=== PATIENT | female | born 1965 | race Hispanic/Latino ===

== ENCOUNTER 2018-05-28 17:26 | Observation (INO) | payer OTHER ==
--- OUTSIDE RECORDS SUMMARY | 2018-05-28 17:28 | XMS REPORT ---
:1965 [facility] Address [address] [place] [address] [address]. [address] [place] [address] Care Team Providers Name Role Phone Unavailable Unavailable Unavailable Problems This patient has no known problems. Allergies, Adverse Reactions, Alerts This patient has no known allergies or adverse reactions. Medications This patient has no known medications.
[2018-05-28 17:58] LABS: Absolute Lymphocytes (CBC) 3.2 K/uL (0.7-4.9); Absolute Monocytes 0.7 K/uL (0.1-1.3); Absolute Neutrophil 4.5 K/uL (1.8-8.0); Basophils % 0.7 % (0-1.3); Eosinophils % 2.6 % (0-4.4); Hematocrit 36.4 % (36.0-45.0); Lymphocytes % 37.2 % (15.3-44.8); MPV 9.9 fL (7.6-11.3); Monocytes % 7.6 % (3.3-12.3); RBC Red Blood Cell Count 3.83 M/uL (3.86-4.86)
[2018-05-28 18:01] LABS: Protime INR 0.99
[2018-05-28 18:18] LABS: ALT/SGPT 32 U/L (12-78); AST/SGOT 19 U/L (15-37); Alkaline Phosphatase 88 U/L (45-117); BUN Blood Urea Nitrogen 15 mg/dL (7-18); Bicarbonate 26 mmol/L (21-32); Bilirubin Direct < 0.1 mg/dL (0-0.2); Bilirubin Total 0.3 mg/dL (0.2-1.0); Glucose Level 101 mg/dL (74-106); Magnesium 2.3 mg/dL (1.8-2.4); NT PRO-BNP 15 pg/mL (<125); Potassium 3.7 mmol/L (3.5-5.1); Protein, Total 8.1 g/dL (6.4-8.2); Sodium Level 139 mmol/L (136-145); Troponin (Emerg Dept Use Only) < 0.02 ng/mL (0.0-0.045)
--- NOTE | 2018-05-28 18:47 | ER ---
Nurse's Notes [facility] Name: Gayla Zapata Age: 53 yrs Sex: Female : 1965 Arrival Date: 05/28/2018 Time: 17:33 Bed 2 Private MD: Diagnosis: Chest pain, unspecified;Hypertension Emergency Presentation: 05/28 17:22 Presenting complaint: EMS states: chest pain, dizziness, headache, tingling bilateral sv hands started today. BP on left arm 220/140, on right arm 220/100, 20G R AC, ASA 324 mg PO, Nitro x2 SL, Zofran 4 mg IVP, pt's CP subsided after last Nitro was given. Transition of care: patient was not received from another setting of care. Onset of symptoms was May 28, 2018. Risk Assessment: Do you want to hurt yourself or someone else? Patient reports no desire to harm self or others. Initial Sepsis Screen: Does the patient meet any 2 criteria? No. Patient's initial sepsis screen is negative. Does the patient have a suspected source of infection? No. Patient's initial sepsis screen is negative. Care prior to arrival: Medication(s) given: ASA, 81 mg, x 4, Nitroglycerin, 0.4 mg SL x 2, zofran 4 mg, IV initiated. 20 GA, in the right antecubital area. 17:22 Acuity: ADELAIDA 2 sv 17:22 Method Of Arrival: EMS: [facility] sv 17:25 Note Pt reports that when she has her chest pain it is midsternal chest pain and feels sv like a heaviness sitting on her chest that is intermittent. Pt reports a hx of HTN and stopped taking her Coreg in 2015 but was being monitored by her PCP. Pt reports that her had at that time and they thought her BP was high d/t emotional stress. Triage Assessment: 17:25 General: Appears in no apparent distress. comfortable, well developed, Behavior is sv calm, cooperative, appropriate for age. Pain: Denies pain. Neuro: Level of Consciousness is awake, alert, obeys commands, Oriented to person, place, time, situation, Moves all extremities. Full function Speech is normal. Cardiovascular: Patient's skin is warm and dry. Pulses are 3+ in right radial artery and left radial artery Rhythm is sinus rhythm Chest pain is denied. Respiratory: Airway is patent Respiratory effort is even, unlabored, Respiratory pattern is regular, symmetrical, Denies shortness of breath. GI: Patient currently denies nausea. Derm: Skin is pink, warm \T\ dry. 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 - Social history:: Smoking status: Patient/guardian denies using tobacco. - Ebola Screening: : No symptoms or risks identified at this time. Screenin:30 Abuse screen: Denies threats or abuse. Denies injuries from another. Nutritional sv screening: No deficits noted. Tuberculosis screening: No symptoms or risk factors identified. Fall Risk None identified. Assessment: 18:15 Reassessment: Patient appears in no apparent distress at this time. No changes from sv previously documented assessment. Patient and/or family updated on plan of care and expected duration. Pain level reassessed. Patient is alert, oriented x 3, equal unlabored respirations, skin warm/dry/pink. 18:31 Reassessment: Dr Fabian at the bedside. sv 19:18 Reassessment: Patient denies pain at this time. General: Appears in no apparent lp1 distress. Neuro: Level of Consciousness is awake, alert, obeys commands, Oriented to person, place, time, situation, Reports dizziness. Cardiovascular: Patient's skin is warm and dry. Respiratory: Respiratory effort is even, unlabored. GI: No signs and/or symptoms were reported involving the gastrointestinal system. : No signs and/or symptoms were reported regarding the genitourinary system. EENT: No signs and/or symptoms were reported regarding the EENT system. Derm: Skin is pink, warm \T\ dry. Musculoskeletal: Circulation, motion, and sensation intact. 20:15 Reassessment: Patient appears in no apparent distress at this time. No changes from lp1 previously documented assessment. Patient and/or family updated on plan of care and expected duration. Pain level reassessed. 20:49 Reassessment: Attempted to call report; nurse will call back. lp1 Vital Signs: 17:30 BP 175 / 97; Pulse 89; Resp 16; Temp 98; Pulse Ox 100% on R/A; Weight 70.31 kg; Height sv 5 ft. 3 in. (160.02 cm); Pain 0/10; 17:45 BP 159 / 80; Pulse 84; Resp 18; Pulse Ox 100% ; sv 18:04 BP 168 / 76; Pulse 83; Resp 16; Pulse Ox 100% on 2 lpm NC; sv 18:15 BP 126 / 65; Pulse 75; Resp 13; Pulse Ox 100% on 2 lpm NC; sv 18:30 BP 116 / 57; Pulse 69; Resp 12; Pulse Ox 99% on 2 lpm NC; sv 19:18 BP 131 / 61; Pulse 77; Resp 14; Temp 99.1(O); Pulse Ox 99% on R/A; Pain 0/10; lp1 20:24 BP 139 / 67; Pulse 82; Resp 18; Pulse Ox 99% on R/A; lp1 21:09 BP 127 / 53; Pulse 66; Resp 18; Pulse Ox 98% on R/A; lp1 17:30 Body Mass Index 27.46 (70.31 kg, 160.02 cm) sv ED Course: 17:22 Initial lab(s) drawn, by me, sent to lab. Maintain EMS IV. Dressing intact. Good blood sv return noted. Site clean \T\ dry. Gauge \T\ site: 20G R AC. 17:25 Oxygen administration via nasal cannula \T\ 2L/min. sv 17:26 EKG done, by ED staff, reviewed by Hiram ELIZALDE. eb 17:30 Arm band placed on Patient placed in an exam room, on a stretcher, on oxygen, on sv art critic, on pulse oximetry. 17:30 Patient has correct armband on for positive identification. Placed in gown. Bed in low sv position. Call light in reach. Adult w/ patient. oven operator automatic on. Pulse ox on. NIBP on. Door closed. Warm blanket given. Head of bed elevated. 17:33 Patient arrived in ED. bd 17:37 Hiram Ford PA is PHCP. jr8 17:37 Neal Mayfield MD is Attending Physician. jr8 17:40 Justina Fernandez, RN is Primary Nurse. sv 17:42 Triage completed. sv 17:46 X-ray completed. Portable x-ray completed in exam room. Patient tolerated procedure sg4 well. 17:48 XRAY Chest (1 view) In Process Unspecified. EDMS 18:20 Assisted to bathroom. ambulated/ wheelchair declined after being offered. eb 18:46 Gregg Fabian DO is Hospitalizing Provider. jr8 19:00 Report given to Felicia RN and Izabela RN. sv 19:20 No provider procedures requiring assistance completed. Patient admitted, IV remains in lp1 place. 19:41 Primary Nurse role handed off by Justina Fernandez RN 20:23 Felicia Thompson, TINA is Primary Nurse. lp1 Administered Medications: 20:24 Not Given (Physician Discretion): Labetalol 10 mg IVP once lp1 Outcome: 18:46 Decision to Hospitalize by Provider. jr8 20:24 Condition: stable lp1 20:24 Instructed on the need for admit. 21:10 Admitted to Tele accompanied by tech, via wheelchair, room 413, with chart, Report lp1 called to TINA Austin 21:15 Patient left the ED. lp1 Signatures: Dispatcher [employer] EDMS Vee Cardoso Stephanie, RN RN Felicia Thompson, TINA RN lp1 Hiram Ford PA PA jr8 Nadege Paz Susana sg4
--- NOTE | 2018-05-28 18:47 | EDPHYS ---
Physician Documentation [facility] Name: Gayla Zapata Age: 53 yrs Sex: Female : 1965 Arrival Date: 05/28/2018 Time: 17:33 Bed 2 Private MD: ED Physician Neal Mayfield HPI: 05/28 18:44 This 53 yrs old Female presents to ER via EMS with complaints of Chest Pain, jr8 Headache, Dizziness. 18:44 Onset: gradually, 2 day(s) ago, and became worse and became persistent. The pain does jr8 not radiate. Associated signs and symptoms: The patient has no apparent associated signs or symptoms. The chest pain is described as a pressure. Duration: The patient or guardian reports a single episode, that is still ongoing. Modifying factors: The symptoms are alleviated by nothing. the symptoms are aggravated by nothing. Severity of pain: At its worst the pain was moderate in the emergency department the pain has improved mildly. The patient has not experienced similar symptoms in the past. The patient has not recently seen a physician. 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 - Social history:: Smoking status: Patient/guardian denies using tobacco. - Ebola Screening: : No symptoms or risks identified at this time. ROS: 18:44 Eyes: Negative for injury, pain, redness, and discharge, ENT: Negative for injury, jr8 pain, and discharge, Neck: Negative for injury, pain, and swelling, Respiratory: Negative for shortness of breath, cough, wheezing, and pleuritic chest pain, Abdomen/GI: Negative for abdominal pain, nausea, vomiting, diarrhea, and constipation, Back: Negative for injury and pain, MS/Extremity: Negative for injury and deformity, Skin: Negative for injury, rash, and discoloration. 18:44 Cardiovascular: Positive for chest pain, Negative for edema, orthopnea, palpitations, paroxysmal nocturnal dyspnea. 18:44 Neuro: Positive for headache. Exam: 18:44 Eyes: Pupils equal round and reactive to light, extra-ocular motions intact. Lids and jr8 lashes normal. Conjunctiva and sclera are non-icteric and not injected. Cornea within normal limits. Periorbital areas with no swelling, redness, or edema. ENT: Nares patent. No nasal discharge, no septal abnormalities noted. Tympanic membranes are normal and external auditory canals are clear. Oropharynx with no redness, swelling, or masses, exudates, or evidence of obstruction, uvula midline. Mucous membranes moist. Neck: Trachea midline, no thyromegaly or masses palpated, and no cervical lymphadenopathy. Supple, full range of motion without nuchal rigidity, or vertebral point tenderness. No Meningismus. Cardiovascular: Regular rate and rhythm with a normal S1 and S2. No gallops, murmurs, or rubs. Normal PMI, no JVD. No pulse deficits. Respiratory: Lungs have equal breath sounds bilaterally, clear to auscultation and percussion. No rales, rhonchi or wheezes noted. No increased work of breathing, no retractions or nasal flaring. Abdomen/GI: Soft, non-tender, with normal bowel sounds. No distension or tympany. No guarding or rebound. No evidence of tenderness throughout. Back: No spinal tenderness. No costovertebral tenderness. Full range of motion. Skin: Warm, dry with normal turgor. Normal color with no rashes, no lesions, and no evidence of cellulitis. MS/ Extremity: Pulses equal, no cyanosis. Neurovascular intact. Full, normal range of motion. Neuro: Awake and alert, GCS 15, oriented to person, place, time, and situation. Cranial nerves II-XII grossly intact. Motor strength 5/5 in all extremities. Sensory grossly intact. Cerebellar exam normal. Normal gait. Vital Signs: 17:30 BP 175 / 97; Pulse 89; Resp 16; Temp 98; Pulse Ox 100% on R/A; Weight 70.31 kg; Height sv 5 ft. 3 in. (160.02 cm); Pain 0/10; 17:45 BP 159 / 80; Pulse 84; Resp 18; Pulse Ox 100% ; sv 18:04 BP 168 / 76; Pulse 83; Resp 16; Pulse Ox 100% on 2 lpm NC; sv 18:15 BP 126 / 65; Pulse 75; Resp 13; Pulse Ox 100% on 2 lpm NC; sv 18:30 BP 116 / 57; Pulse 69; Resp 12; Pulse Ox 99% on 2 lpm NC; sv 19:18 BP 131 / 61; Pulse 77; Resp 14; Temp 99.1(O); Pulse Ox 99% on R/A; Pain 0/10; lp1 20:24 BP 139 / 67; Pulse 82; Resp 18; Pulse Ox 99% on R/A; lp1 21:09 BP 127 / 53; Pulse 66; Resp 18; Pulse Ox 98% on R/A; lp1 17:30 Body Mass Index 27.46 (70.31 kg, 160.02 cm) sv MDM: 17:39 Patient medically screened. jr8 18:44 The patient was not given aspirin in the Emergency Department. Administered by EMS. jr8 Data reviewed: vital signs, nurses notes, lab test result(s), EKG, radiologic studies, plain films. Data interpreted: Pulse oximetry: on room air is 99 %. Interpretation: normal. Counseling: I had a detailed discussion with the patient and/or guardian regarding: the historical points, exam findings, and any diagnostic results supporting the discharge/admit diagnosis, lab results, radiology results, the need for further work-up and treatment in the hospital. Physician consultation: Gregg Fabian DO was called at 18:45, was contacted at 18:45, regarding admission, to the telemetry unit. consult, patient's condition, and will see patient. 05/28 17:37 Order name: Basic Metabolic Panel; Complete Time: 18:23 05/28 17:37 Order name: CBC with Diff; Complete Time: 18:17 05/28 17:37 Order name: LFT's; Complete Time: 18:23 05/28 17:37 Order name: Magnesium; Complete Time: 18:23 05/28 17:37 Order name: NT PRO-BNP; Complete Time: 18:23 05/28 17:37 Order name: PT-INR; Complete Time: 18:17 05/28 17:37 Order name: Troponin (emerg Dept Use Only); Complete Time: 18:23 05/28 17:37 Order name: XRAY Chest (1 view); Complete Time: 19:06 05/28 17:37 Order name: EKG; Complete Time: 17:38 8 05/28 17:37 Order name: Cardiac monitoring; Complete Time: 18:29 8 05/28 17:37 Order name: EKG - Nurse/Tech; Complete Time: 18:29 8 05/28 17:37 Order name: IV Saline Lock; Complete Time: 18:29 8 05/28 18:19 Order name: Urine Dipstick--Ancillary (enter results); Complete Time: 20:36 05/28 17:37 Order name: Labs collected and sent; Complete Time: 18:29 8 05/28 17:37 Order name: O2 Per Protocol; Complete Time: 18:29 [facility] 05/28 17:37 Order name: O2 Sat Monitoring; Complete Time: 18:8 Administered Medications: 20:24 Not Given (Physician Discretion): Labetalol 10 mg IVP once lp1 Disposition: 05/29 09:56 Co-signature as Attending Physician, Neal Mayfield MD. rn Disposition: 05/28/18 18:46 Hospitalization ordered by Gregg Fabian for Observation. Preliminary diagnosis are Chest pain, unspecified, Hypertension Emergency . - Bed requested for Telemetry/MedSurg (observation). - Status is Observation. lp1 - Condition is Stable. - Problem is new. - Symptoms have improved. UTI on Admission? No Signatures: Dispatcher [employer] EDJustina Armendariz RN Neal Prado MD MD rn Pena, Laura, RN RN lp1 Hiram Ford PA PA jr8 Corrections: (The following items were deleted from the chart) 05/28 20:41 18:46 Hospitalization Ordered by Gregg Fabian DO for Observation. Preliminary jr8 diagnosis is Chest pain, unspecified; Hypertension Emergency . Bed requested for Telemetry/MedSurg (observation). Status is Observation. Condition is Stable. Problem is new. Symptoms have improved. UTI on Admission? No. jr8 21:15 20:41 05/28/2018 18:46 Hospitalization Ordered by Gregg Fabian DO for Observation. lp1 Preliminary diagnosis is Chest pain, unspecified; Hypertension Emergency . Bed requested for Telemetry/MedSurg (observation). Status is Observation. Condition is Stable. Problem is new. Symptoms have improved. UTI on Admission? No. jr8
--- NOTE | 2018-05-28 18:55 | RAD REPORT ---
EXAM DESCRIPTION: RAD - Chest Single View - 05/28/2018 5:50 pm CLINICAL HISTORY: CHEST PAIN Chest pain. COMPARISON: Chest Pa And Lat (2 Views) dated 06/02/2016; Chest Single View dated 11/05/2015; Chest Singl e View dated 11/04/2015; CHEST SINGLE VIEW dated 11/28/2007 FINDINGS: Portable technique limits examination quality. The lungs are grossly clear. The heart is normal in size. No displaced fractures. IMPRESSION: No acute intrathoracic process suspected.
--- NOTE | 2018-05-28 19:57 | P.HP ---
Certification for Inpatient Patient admitted to: Observation With expected LOS: <2 Midnights Practitioner: I am a practitioner with admitting privileges, knowledge of patient current condition, hospital course, and medical plan of care. Services: Services provided to patient in accordance with Admission requirements found in Title 42 Section 412.3 of the Code of Federal Regulations Patient History Date of Service: 05/28/18 Reason for admission: chest pain, hypertension urgency History of Present Illness: Ms Zapata is a 53 years old woman with history of hypothyroidism, RA, previous admission for chest pain in 2016 with normal work up, came to ED complaining of chest pain, headache and high blood pressure. She describes the chest pain as pressure like, associated with nausea and SOB. The chest pain is substernal, no radiated, 8-9/10, worse with chest movements, and is reproducible with palpation. Her BP at arrival was significantly elevated, 220/140. Initial trop I negative, EKG shows SR at 80 bpm, without ST-T abnormalities. Allergies No Known Allergies Allergy (Verified 11/04/15 23:00) Home medications list reviewed: Yes Home Medications: Gabapentin 100 mg PO DAILY 11/04/15 Hydrocodone 10/APAP 325 [[place] 10/325*] 1 tab PO BID* PRN 11/04/15 Levothyroxine [Synthroid*] 0.075 mg PO DAILY 11/04/15 Carvedilol [Coreg*] 3.125 mg PO BID 6AM 6PM #60 tab 11/05/15 Famotidine [Pepcid*] 20 mg PO BID #60 tab 11/05/15 Hydroxychloroquine [Plaquenil*] 200 mg PO DAILY tab 11/05/15 predniSONE [Prednisone*] 20 mg PO BID #15 tab 11/05/15 - Past Medical/Surgical History Diabetic: No -: Rheumatoid arthritis -: Hypothyroidism -: Hyperlipidemia -: Muscle spasms -: C section -: Left ankle surgery Psychosocial/ Personal History: since last year. from an acute [place], She does not work. She has one child. - Family History Mother -: Hypertension, GI disease Notes: GI ulcers, arthritis Father -: Hypertension Notes: Ulcers - Social History Smoking Status: Never smoker Alcohol use: No CD- Drugs: No Caffeine use: Yes Place of Residence: Home Review of Systems 10-point ROS is otherwise unremarkable Physical Examination - Physical Exam General: Alert, In no apparent distress HEENT: Atraumatic, PERRLA, Mucous membr. moist/pink, EOMI, Sclerae nonicteric Neck: Supple, 2+ carotid pulse no bruit, No LAD, Without JVD or thyroid abnormality Respiratory: Clear to auscultation bilaterally, Normal air movement Cardiovascular: Regular rate/rhythm, Normal S1 S2 Gastrointestinal: Normal bowel sounds, No tenderness Musculoskeletal: Tenderness (chest is tenderness to palpation, reproducing similat chest pain complained.) Integumentary: No rashes Neurological: Normal speech, Normal strength at 5/5 x4 extr, Normal tone, Normal affect Lymphatics: No axilla or inguinal lymphadenopathy - Studies Laboratory Data (last 24 hrs) 05/28/18 17:35: PT 11.7, INR 0.99 05/28/18 17:35: WBC 8.6, Hgb 12.7, Hct 36.4, Plt Count 265 05/28/18 17:35: Sodium 139, Potassium 3.7, BUN 15, Creatinine 0.78, Glucose 101 , Magnesium 2.3, Total Bilirubin 0.3, AST 19, ALT 32, Alkaline Phosphatase 88 Assessment and Plan - Problems (Diagnosis) (1) HTN (hypertension) Onset Date: 11/05/15 Current Visit: No Status: Acute Qualifiers: Hypertension type: essential hypertension Qualified Code(s): I10 - Essential (primary) hypertension (2) Rheumatoid arthritis Onset Date: 11/05/15 Current Visit: No Status: Acute Qualifiers: Rheumatoid arthritis location: multiple sites Rheumatoid factor presence: unspecified presence Qualified Code(s): M06.9 - Rheumatoid arthritis, unspecified (3) Chest pain Onset Date: 11/05/15 Current Visit: No Status: Resolved Qualifiers: Chest pain type: unspecified Qualified Code(s): R07.9 - Chest pain, unspecified - Plan The patient will be admitted to the hospital due to chest pain, which is reproducible with chest palpation, similar characteristics, normal EKG, negative troponin I, seems to be atypical. However, the patient will be seen by cardiology team in the morning, in the meantime will continue with serial cardiac enzymes and EKG. She is on ASA, Statins and beta blaire. Her BP is better controlled now, after received therapy in ER. Will continue close monitoring. - Advance Directives Does patient have a Living Will: No Does patient have a Durable POA for Healthcare: No - Code Status/Comfort Care Code Status Assessed: Yes Code Status: Full Code
[2018-05-28 20:33] LABS: Urine Blood 1+ (NEG); Urine Glucose NEGATIVE (NEG); Urine Protein NEGATIVE (NEG); Urine pH 6.5 (5.0-7.0)
[2018-05-28] MEDS ORDERED: ACETAMINOPHEN 500 MG TAB PO PRN (21:28)
[2018-05-28] MEDS ORDERED: ATORVASTATIN 20 MG TAB PO SCH (21:28)
[2018-05-28] MEDS ORDERED: MORPHINE 2 MG/ML SYR IV PRN (21:28)
[2018-05-28] MEDS ORDERED: HYDRALAZINE HCL 20 MG/ML VIAL IV PRN (21:28)
[2018-05-28] MEDS ORDERED: ONDANSETRON 4 MG/2 ML VIAL IV PRN (21:28)
[2018-05-28] MEDS ORDERED: NITROGLYCERIN 0.4 MG/TAB SL PRN (21:28)
[2018-05-28 21:47] VITALS: BMI 27.6
[2018-05-28] MEDS: FAMOTIDINE 20 MG TAB PO SCH (22:13)
[2018-05-28] MEDS ORDERED: MORPHINE 4 MG/ML SYR ONE (22:18)
[2018-05-28 22:30] LABS: CKMB Creatine Kinase MB 1.7 ng/mL (0.3-3.6); Troponin I 0.03 ng/mL (0.0-0.045)
[2018-05-28 22:34] LABS: Thyroid Stimulating Hormone 0.967 uIU/mL (0.360-3.740)
[2018-05-29 00:38] LABS: Urine Appearance CLEAR; Urine Bilirubin NEGATIVE (NEG); Urine Blood TRACE (NEG); Urine Color YELLOW; Urine Glucose NEGATIVE (NEG); Urine Protein NEGATIVE (NEG); Urine Urobilinogen 0.2 mg/dL (0.2-1.0)
[2018-05-29 00:56] LABS: Urine Microscopic Reflex ORDER UMIC
[2018-05-29 01:59] LABS: Urine Bacteria <20 /HPF (<20); Urine Culture Reflex Order NOT NEEDED; Urine RBC <5 /HPF (NONE SEEN)
[2018-05-29] MEDS: MORPHINE 4 MG/ML SYR ONE ×2 (04:43→04:47)
[2018-05-29 04:53] VITALS: O2SAT 98
[2018-05-29] MEDS ORDERED: CARVEDILOL 3.125 MG TAB PO SCH (06:00)
[2018-05-29 06:26] LABS: Absolute Lymphocytes (CBC) 2.7 K/uL (0.7-4.9); Absolute Monocytes 0.7 K/uL (0.1-1.3); Absolute Neutrophil 3.5 K/uL (1.8-8.0); Basophils % 0.7 % (0-1.3); Eosinophils % 2.6 % (0-4.4); Hematocrit 35.5 % (36.0-45.0); Lymphocytes % 37.8 % (15.3-44.8); MPV 9.8 fL (7.6-11.3); Monocytes % 9.5 % (3.3-12.3); RBC Red Blood Cell Count 3.74 M/uL (3.86-4.86)
[2018-05-29 06:43] LABS: Magnesium 2.2 mg/dL (1.8-2.4); Potassium 4.1 mmol/L (3.5-5.1)
[2018-05-29 06:48] LABS: CKMB Creatine Kinase MB 1.4 ng/mL (0.3-3.6); Creatine Phosphokinase 102 U/L (26-192); Troponin I < 0.02 ng/mL (0.0-0.045)
--- NOTE | 2018-05-29 07:38 | EKG ---
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
[2018-05-29] MEDS ORDERED: ASPIRIN EC 81 MG TAB PO SCH (09:00)
[2018-05-29] MEDS ORDERED: ENOXAPARIN 40 MG/0.4 ML SQ SCH (09:00)
[2018-05-29] MEDS ORDERED: HYDROCODONE/APAP 7.5/325 MG TAB PO PRN (10:39)
--- NOTE | 2018-05-29 10:47 | P.DS ---
Admission Date: 05/28/18 Discharge Date: 05/29/18 Primary Care Provider: Debo Conway NP Disposition: ROUTINE DISCHARGE Discharge Condition: GOOD Reason for Admission: chest pain, hypertension urgency Consultations: Cardiology-Dr. Dorado Procedures: ECHO: To be done as an outpatient Cardiac Stress Test: COMPARISON: Rest Stress Cardiac Imaging dated 11/05/2015 TECHNIQUE: The patient was administered approximately 10mCi of Tc 99m Sestamibi prior to resting SPECT imaging of the heart. The patient was then administered approximately 30 mCi of Tc 99m Sestamibi following exercise or pharmacologic stress. Multiplanar SPECT images were reviewed. FINDINGS: No stress induced ischemic defect is seen to suggest stress induced ischemia. No fixed defect is seen to suggest hibernating myocardium or scarred myocardium. The end diastolic volume is 63 ml, the end systolic volume is 17 ml, and the ejection fraction is 72 %. IMPRESSION: No stress induced ischemia. Medical Problem List: Chest pain Hypertension on controlled Rheumatoid arthritis Hyperlipidemia GERD Hypothyroidism Brief History of Present Illness: 53-year-old female presented emergency room with chest pain. Patient with history of hypertension, rheumatoid arthritis, and hyperlipidemia. Patient was admitted for further evaluation. Hospital Course: Patient presented with chest pain. Blood pressures were elevated. Patient admitted for further evaluation. Cardiac enzymes unremarkable. Patient had carotid stress test. Cardiac stress test showed no stress induced ischemia. Echocardiogram to be done as an outpatient. Patient seen and evaluated by Cardiology. Chest pain may be GERD related or inflammation from rheumatoid arthritis. Patient started on Protonix 40 mg daily. Patient will also go home on prednisone 10 mg 1 pill twice daily for 5 days then once daily for 5 days. At discharge patient will continue with aspirin 81 mg daily. Patient will also be provided nitroglycerin tablets to be use as needed for chest pain. Recommend for patient to follow up with cardiology to have outpatient echocardiogram. Patient likely has underlying GERD. Patient will continue with Protonix 40 mg 1 pill once daily. Recommendation is for the patient follow up with GI as an outpatient to further address. Patient with rheumatoid arthritis. Chest pain likely related to rheumatoid arthritis. Will provide prednisone 10 mg 1 pill twice daily for 5 days then 1 pill once daily for 5 days. Patient will continue with Plaquenil 200 mg daily. Patient also takes hydrocodone as needed for pain. Patient will need a follow up with Rheumatology as directed. Patient has hyperlipidemia. LDL elevated. Patient previously on Tricor. Will discontinue Tricor and change to Lipitor 20 mg daily. Recommend to recheck fasting lipid panel in 4-6 weeks to monitor her progress. Patient has hypertension. Blood pressure elevated upon admission. Blood pressure now better controlled. Patient previously taking medication but not recently. At discharge she will continue with carvedilol 3.25 mg 1 pill twice daily. Recommendation is to maintain blood pressures less 150/80. Further adjustment can be done by her PCP. Patient has hypothyroidism. Patient will continue with her medication- levothyroxine 75 mcg daily. Vital Signs/Physical Exam: Temp Pulse Resp BP Pulse Ox 97.6 F 69 16 117/54 L 98 05/29/18 08:00 05/29/18 08:51 05/29/18 08:00 05/29/18 08:51 05/29/18 08:00 General: Alert, In no apparent distress, Oriented x3, Cooperative HEENT: Atraumatic, Mucous membr. moist/pink Neck: Supple Respiratory: Clear to auscultation bilaterally, Normal air movement Cardiovascular: Normal pulses, Regular rate/rhythm Gastrointestinal: Normal bowel sounds, Soft and benign, Non-distended, No tenderness, No masses, No rebound, No guarding Musculoskeletal: No erythema, No tenderness, No warmth Integumentary: No tenderness/swelling, No erythema, No warmth, No cyanosis Neurological: Normal speech, Normal strength at 5/5 x4 extr, Normal tone, Normal affect Laboratory Data at Discharge: WBC 7.2 K/uL (4.3-10.9) D 05/29/18 06:10 Hgb 12.2 g/dL (12.0-15.0) 05/29/18 06:10 Hct 35.5 % (36.0-45.0) L 05/29/18 06:10 Plt Count 243 K/uL (152-406) 05/29/18 06:10 PT 11.7 SECONDS (9.5-12.5) 05/28/18 17:35 INR 0.99 05/28/18 17:35 Sodium 141 mmol/L (136-145) 05/29/18 06:10 Potassium 4.1 mmol/L (3.5-5.1) 05/29/18 06:10 BUN 18 mg/dL (7-18) 05/29/18 06:10 Creatinine 0.71 mg/dL (0.55-1.3) 05/29/18 06:10 Glucose 102 mg/dL (74-106) 05/29/18 06:10 Magnesium 2.2 mg/dL (1.8-2.4) 05/29/18 06:10 Total Bilirubin 0.3 mg/dL (0.2-1.0) 05/28/18 17:35 AST 19 U/L (15-37) 05/28/18 17:35 ALT 32 U/L (12-78) 05/28/18 17:35 Alkaline Phosphatase 88 U/L (45-117) 05/28/18 17:35 Troponin I < 0.02 ng/mL (0.0-0.045) 05/29/18 06:10 Triglycerides 168 mg/dL (<150) H 05/29/18 06:10 Cholesterol 221 mg/dL (<200) H 05/29/18 06:10 HDL Cholesterol 52 mg/dL (40-60) 05/29/18 06:10 Cholesterol/HDL Ratio 4.25 05/29/18 06:10 Home Medications: Carvedilol [Coreg*] 1 tab PO BID 05/28/18 Hydrocodone Bit/Acetaminophen [[place] 7.5-325 Tablet] 1 tab PO BID PRN 05/28/18 Hydroxychloroquine [Plaquenil*] 1 tab PO DAILY 05/28/18 Levothyroxine [Synthroid*] 1 tab PO 0600 05/28/18 Aspirin [Aspirin EC 81 MG] 81 mg PO DAILY #90 tablet. 05/29/18 Atorvastatin Calcium [Lipitor*] 20 mg PO BEDTIME #30 tab 05/29/18 Nitroglycerin [Nitrostat*] 0.4 mg SL UD PRN #30 tab 05/29/18 Pantoprazole [Protonix Tab] 40 mg PO DAILY #30 tab 05/29/18 predniSONE [Deltasone*] 10 mg PO SEECOM #15 tab 05/29/18 New Medications: Aspirin [Aspirin EC 81 MG] 81 mg PO DAILY #90 tablet. Atorvastatin Calcium [Lipitor*] 20 mg PO BEDTIME #30 tab Nitroglycerin [Nitrostat*] 0.4 mg SL UD PRN #30 tab PRN Reason: Chest Pain Pantoprazole [Protonix Tab] 40 mg PO DAILY #30 tab predniSONE [Deltasone*] 10 mg PO SEECOM #15 tab Patient Discharge Instructions: 1. Patient will need to follow up with a PCP in 1 week to follow up this hospitalization. 2. Patient presented with chest pain. Blood pressures were elevated. Patient admitted for further evaluation. Cardiac enzymes unremarkable. Patient had carotid stress test. Cardiac stress test showed no stress induced ischemia. Echocardiogram to be done as an outpatient. Patient seen and evaluated by Cardiology. Chest pain may be GERD related or inflammation from rheumatoid arthritis. Patient started on Protonix 40 mg daily. Patient will also go home on prednisone 10 mg 1 pill twice daily for 5 days then once daily for 5 days. At discharge patient will continue with aspirin 81 mg daily. Patient will also be provided nitroglycerin tablets to be use as needed for chest pain. Recommend for patient to follow up with cardiology to have outpatient echocardiogram. 3. Patient likely has underlying GERD. Patient will continue with Protonix 40 mg 1 pill once daily. Recommendation is for the patient follow up with GI as an outpatient to further address. 4. Patient with rheumatoid arthritis. Chest pain likely related to rheumatoid arthritis. Will provide prednisone 10 mg 1 pill twice daily for 5 days then 1 pill once daily for 5 days. Patient will continue with Plaquenil 200 mg daily. Patient also takes hydrocodone as needed for pain. Patient will need a follow up with Rheumatology as directed. 5. Patient has hyperlipidemia. LDL elevated. Patient previously on Tricor. Will discontinue Tricor and change to Lipitor 20 mg daily. Recommend to recheck fasting lipid panel in 4-6 weeks to monitor her progress. 6. Patient has hypertension. Blood pressure elevated upon admission. Blood pressure now better controlled. Patient previously taking medication but not recently. At discharge she will continue with carvedilol 3.25 mg 1 pill twice daily. Recommendation is to maintain blood pressures less 150/80. Further adjustment can be done by her PCP. 7. Patient has hypothyroidism. Patient will continue with her medication -levothyroxine 75 mcg daily. Diet: AHA Activity: Ad tiffany Time spent managing pt's care (in minutes): 55
[2018-05-29] MEDS ORDERED: REGADENOSON 0.4 MG/5 ML SYR IV ONE (10:58)
[2018-05-29] MEDS ORDERED: MORPHINE 4 MG/ML SYR IV PRN (11:07)
[2018-05-29] MEDS ORDERED: FENTANYL CITR 100 MCG/2 ML ONE (11:33)
--- NOTE | 2018-05-29 12:07 | RAD REPORT ---
EXAM DESCRIPTION: NM - Rest Stress Cardiac Imaging - 05/29/2018 12:01 pm CLINICAL HISTORY: CP Chest pain. COMPARISON: Rest Stress Cardiac Imaging dated 11/05/2015 TECHNIQUE: The patient was administered approximately 10mCi of Tc 99m Sestamibi prior to resting SPE CT imaging of the heart. The patient was then administered approximately 30 mCi of Tc 99m Sestamibi f ollowing exercise or pharmacologic stress. Multiplanar SPECT images were reviewed. FINDINGS: No stress induced ischemic defect is seen to suggest stress induced ischemia. No fixed def ect is seen to suggest hibernating myocardium or scarred myocardium. The end diastolic volume is 63 ml, the end systolic volume is 17 ml, and the ejection fraction is 72 %. IMPRESSION: No stress induced ischemia.
[2018-05-29] MEDS: FAMOTIDINE 20 MG TAB PO SCH (12:17)
--- NOTE | 2018-05-29 14:49 | CON ---
Chief Complaint: Pain in the chest. History Of Present Illness: Ms. Zapata notices every time her blood pressure goes up, she gets pain i n the chest. She has been in the hospital. Her enzymes and EKGs are normal. Two years ago, a [facility] hospitalization was done. An echocardiogram and nuclear stress test done were normal. The patien t has underlying hypothyroidism and rheumatoid arthritis. She takes Coreg 3.125 b.i.d. for hypertens ion, but she told me that there are some days she does not take it if her blood pressure is normal, s o she is really not on a good blood pressure regimen. She does not have diabetes. She uses no tobac co. Medications: Outpatient medications have been Plaquenil, levothyroxine, hydrocodone with Tylenol, Co reg, and fenofibrate. Allergies: SHE HAS NO ALLERGIES. Physical Examination: General: A 5 feet 3 inches, 156 pounds. HEENT: Normal. Lungs: Clear. Cardiac: Normal. Abdomen: Soft. Extremities: Normal. No cyanosis, clubbing, or edema. Distal pulses palpable. EKG normal. Troponins normal. The patient is scheduled for a nuclear stress test and echo. If thos e are normal, she could be discharged. She should probably be on a different hypertension medicine. I would be in favor of an angiotensin receptor blaire with a thiazide diuretic as a first try and i f her nuclear stress test and echo are normal, I would think that the most likely cause of her pain is her underlying rheumatoid arthritis. SH/MODL Voice ID: [id number] Report ID: [id number]
[2018-05-29 17:13] VITALS: BP 134/58; TEMP 97.9
[2018-05-29] MEDS ORDERED: predniSONE 20 MG TAB PO SCH (21:00)
[2018-05-30] MEDS ORDERED: LEVOTHYROXINE SOD 0.075 MG TAB PO SCH (06:00)
[2018-05-30] MEDS ORDERED: HYDROXYCHLOROQUINE 200MG TAB PO SCH (09:00)
--- NOTE | 2018-05-30 10:09 | TREADPHA ---
DX: CHEST PAIN Date of Study: 05/29/18 Ht: 5 3 Wt: 156 lb 0 oz Consulting Physician: EDWIN MEDICATIONS: TYLENOL, ASPIRIN, COREG, LIPITOR, LOVENOX. HISTORY: 53 YEAR FEMALE. CC: CHEST PAIN, HISTORY: HYPOTHYROLDISM, HIGH CHOLESTEROL, HYPERTENSION, FIBROMYALGIA, RHEUMATOID, ARTHRITIS. NON-SMOKER, NON- DRINKER. PHYSICIAL EXAMINATION: RESTING B.P.: 129/66 RESTING H.R.: 67 RESTING EKG: NORMAL PROTOCOL: LEXISCAN EXERCISE TIME: 3:30 B.P. AT [place] STRESS: 144/68 IMPRESSION: LEXISCAN INJECTED, CARDIOLITE INJECTED PER PROTOCOL, SEE NUCLEAR MEDICINE REPORT. NO SUPRAVENTRICULAR TACHYCARDIA. NO VENTRICULAR TACHYCARDIA. NO PREMATURE VENTRICULAR CONTRACTIONS. CHEST PAIN 10/10 AFTER ADMINISTRATION OF LEXISCAN. TEST ENDING PATIENT HAD INCREASED PRESSURE. EKG NORMAL, BP 123/88. DR PINEDA ORDERED FENTANYL 50mg INTRAVENOUS TIMES ONE DOSE ADMINISTERED AT 1118- MARK LAINEZ RN. NON-DIAGNOSITC ELECTROCARDIOGRAM WITH LEXISCAN STRESS.
== END 2018-05-29 16:30 | disposition home or self-care (01) ==
LOC: ER 17:26 → ERHOLD 18:33 → 4TH 21:08
PROVIDERS: ADMIT Family Medicine; ATTEND Internal Medicine
DX: R07.9 Chest pain, unspecified (principal); I10 Essential (primary) hypertension; M06.9 Rheumatoid arthritis, unspecified; E78.5 Hyperlipidemia, unspecified; K21.9 Gastro-esophageal reflux disease without esophagitis; E03.9 Hypothyroidism, unspecified
CPT/HCPCS: 36415; 71045; 78452; 80048; 80061; 80076; 81003; 81015; 82550; 82553; 83735; 83880; 84439; 84443; 84484; 85025; 85610; 93005; 93017; 99285; A9500; G0378; J1650; J2785; J3010

== ENCOUNTER 2019-12-23 19:55 | Emergency (ER) | payer OTHER ==
--- OUTSIDE RECORDS SUMMARY | 2019-12-23 19:57 | XMS REPORT | Continuity of Care Document ---
:1965 Author Organization [facility] t Address [address] [place] [address] Care Team Providers Name Role Phone Pcp-Lab Attending Clinician Unavailable Octaviano Echeverria DO Attending Clinician Problems This patient has no known problems. Allergies, Adverse Reactions, Alerts This patient has no known allergies or adverse reactions. Medications This patient has no known medications. Procedures This patient has no known procedures. 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
--- NOTE | 2019-12-23 20:39 | RAD REPORT ---
EXAM DESCRIPTION: [place] Single View12/23/2019 8:28 pm CLINICAL HISTORY: Chest pain COMPARISON: 2017 FINDINGS: The lungs appear clear of acute infiltrate. The heart is normal size IMPRESSION: No acute abnormalities displayed
[2019-12-23 20:44] LABS: Urine Blood TRACE (NEG); Urine Glucose NEGATIVE (NEG); Urine Protein NEGATIVE (NEG)
[2019-12-23 20:45] LABS: Absolute Lymphocytes (CBC) 2.5 K/uL (0.7-4.9); MPV 10.4 fL (7.6-11.3); RBC Red Blood Cell Count 3.89 M/uL (3.86-4.86)
[2019-12-23 20:48] LABS: Protime INR 0.92
[2019-12-23 21:02] LABS: ALT/SGPT 38 U/L (12-78); AST/SGOT 23 U/L (15-37); Albumin 3.9 g/dL (3.4-5.0); Alkaline Phosphatase 79 U/L (45-117); BUN Blood Urea Nitrogen 15 mg/dL (7-18); Bicarbonate 25 mmol/L (21-32); Bilirubin Direct < 0.1 mg/dL (0-0.2); Bilirubin Total 0.3 mg/dL (0.2-1.0); Glucose Level 110 mg/dL (74-106); Magnesium 2.1 mg/dL (1.8-2.4); NT PRO-BNP 30 pg/mL (<125); Potassium 3.7 mmol/L (3.5-5.1); Protein, Total 7.9 g/dL (6.4-8.2); Sodium Level 139 mmol/L (136-145); Troponin (Emerg Dept Use Only) < 0.02 ng/mL (0.0-0.045)
--- NOTE | 2019-12-23 21:38 | ER ---
Nurse's Notes [facility] Name: Gayla Zapata Age: 54 yrs Sex: Female : 1965 Arrival Date: 12/23/2019 Time: 19:56 Bed 17 Private MD: Diagnosis: Hypertensive urgency Presentation: 12/22 19:58 Chief complaint: EMS states: BIBA FROM HOME LAST NIGHT HAD PIZZA STARTED HAVING CP AND mt2 CHECKED B/P WAS HIGH. IS NON COMPLIANT WITH HOME MEDS. HTN AGAIN TODAY EMS CHECKED AT 176/96. PT STATES ONLY SOB WITH CP. DENIES DIZZINESS. Coronavirus screen: Patient denies a cough. Patient denies shortness of breath or difficulty breathing. Patient denies measured and/or subjective temperature greater than 100.4F prior to today's visit. Patient denies travel on a cruise ship or to a country the [facility] currently lists as an affected area. Patient denies contact with known and/or suspected case of COVID-19. Patient instructed to continue to wear a mask when interacting with others. Patient moved to private room, placed in contact and droplet isolation with eye protection until further assessment. Ebola Screen: No symptoms or risks identified at this time. Initial Sepsis Screen: Does the patient meet any 2 criteria? No. Patient's initial sepsis screen is negative. Does the patient have a suspected source of infection? No. Patient's initial sepsis screen is negative. Risk Assessment: Do you want to hurt yourself or someone else? Patient reports no desire to harm self or others. Onset of symptoms was December 22, 2019 at 22:00. 19:58 Method Of Arrival: EMS: [facility] mt2 19:58 Acuity: ADELAIDA 3 mt2 Triage Assessment: 21:14 General: Appears uncomfortable, Behavior is cooperative, anxious. Pain: Complains of ks7 pain in chest Pain radiates to back Pain currently is 7 out of 10 on a pain scale. Quality of pain is described as sharp, Is intermittent, lasting a few seconds. Cardiovascular: Reports chest pain, shortness of breath, since yesterday. Historical: - Allergies: 20:03 No Known Allergies; mt2 - Immunization history:: Adult Immunizations up to date. - Social history:: Smoking status: Patient denies any tobacco usage or history of. Patient/guardian denies using alcohol, street drugs. Screenin:17 Abuse screen: Denies threats or abuse. Denies injuries from another. Nutritional ks7 screening: No deficits noted. Tuberculosis screening: No symptoms or risk factors identified. Fall Risk None identified. Assessment: 21:17 General: Behavior is anxious, Reports pt reports CP and sob intermittent since ks7 yesterday. sharp pain in the middle of her chest and radiates to her back. pt aaox4, ambulatory. Vital Signs: 19:58 BP 187 / 96; Pulse 74; Resp 16; Pulse Ox 95% ; Weight 70.31 kg; Pain 5/10; mt2 20:01 BP 152 / 73; Pulse 65; Resp 18; Pulse Ox 99% ; Pain 8/10; ks7 Vitals: 21:17 Cardiac Rhythm Assessment Regular Sinus rhythm. ks7 ED Course: 19:56 Patient arrived in ED. ds1 19:57 Paresh Alvarez MD is Attending Physician. tw4 20:01 Triage completed. mt2 20:03 Arm band placed on right wrist. EKG completed in triage. Results shown to MD. mt2 20:28 XRAY Chest (1 view) In Process Unspecified. EDMS 21:14 Petra Uribe, RN is Primary Nurse. ks7 21:17 Resting quietly. ks7 21:17 Patient has correct armband on for positive identification. Bed in low position. Call ks7 light in reach. Side rails up X2. 21:17 No provider procedures requiring assistance completed. Inserted saline lock: 20 gauge ks7 in right antecubital area, using aseptic technique. Blood collected. 22:45 IV discontinued, intact, bleeding controlled, No redness/swelling at site. Pressure mt2 dressing applied. Administered Medications: 21:35 Not Given (pt bp 125/63 HR 63): hydrALAZINE 10 mg IV at bolus once ks7 Outcome: 21:37 Discharge ordered by . tw4 22:44 Discharged to home ambulatory. mt2 22:44 Condition: good 22:44 Discharge instructions given to patient. 22:45 Patient left the ED. mt2 Signatures: Dispatcher [employer] EDWA Jay Jay Anna dsParesh Pruitt MD MD tw4 Petra Uribe, RN TINA ks7 Sravanthi Gtz RN RN mt2 Corrections: (The following items were deleted from the chart) 20:02 19:58 BP 187 / 96; Pulse 74bpm; Resp 16bpm; Pulse Ox 95%; mt2 mt2
--- NOTE | 2019-12-23 21:38 | EDPHYS ---
Physician Documentation [facility] Name: Gayla Zapata Age: 54 yrs Sex: Female : 1965 Arrival Date: 12/23/2019 Time: 19:56 Bed 17 Private MD: ED Physician Paresh Alvarez HPI: 12/22 23:47 This 54 yrs old Female presents to ER via EMS with complaints of High Blood tw4 Pressure. 23:47 The patient has elevated blood pressure and discovered this at home. Onset: The tw4 symptoms/episode began/occurred yesterday. Modifying factors: The symptoms are aggravated by. Associated signs and symptoms: Pertinent positives: chest pain, dizziness, lightheadedness. Severity of symptoms: At its worst the blood pressure was 190 mm Hg, in the emergency department the blood pressure is unchanged. The patient has not experienced similar symptoms in the past. Historical: - Allergies: 20:03 No Known Allergies; mt2 - Immunization history:: Adult Immunizations up to date. - Social history:: Smoking status: Patient denies any tobacco usage or history of. Patient/guardian denies using alcohol, street drugs. ROS: 23:47 Constitutional: Negative for fever, chills, and weight loss, Eyes: Negative for injury, tw4 pain, redness, and discharge, Respiratory: Negative for shortness of breath, cough, wheezing, and pleuritic chest pain, Abdomen/GI: Negative for abdominal pain, nausea, vomiting, diarrhea, and constipation, Back: Negative for injury and pain, MS/Extremity: Negative for injury and deformity, Skin: Negative for injury, rash, and discoloration. 23:47 Cardiovascular: Positive for chest pain, Negative for edema, orthopnea, palpitations. 23:47 Neuro: Positive for dizziness, Negative for altered mental status, numbness, seizure activity, speech changes, syncope, near syncope, tingling, tinnitus, tremor, visual changes, weakness. Exam: 23:47 Constitutional: This is a well developed, well nourished patient who is awake, alert, tw4 and in no acute distress. Head/Face: Normocephalic, atraumatic. Cardiovascular: Regular rate and rhythm with a normal S1 and S2. No gallops, murmurs, or rubs. Normal PMI, no JVD. No pulse deficits. Respiratory: Lungs have equal breath sounds bilaterally, clear to auscultation and percussion. No rales, rhonchi or wheezes noted. No increased work of breathing, no retractions or nasal flaring. Abdomen/GI: Soft, non-tender, with normal bowel sounds. No distension or tympany. No guarding or rebound. No evidence of tenderness throughout. Back: No spinal tenderness. No costovertebral tenderness. Full range of motion. Skin: Warm, dry with normal turgor. Normal color with no rashes, no lesions, and no evidence of cellulitis. MS/ Extremity: Pulses equal, no cyanosis. Neurovascular intact. Full, normal range of motion. Neuro: Awake and alert, GCS 15, oriented to person, place, time, and situation. Cranial nerves II-XII grossly intact. Motor strength 5/5 in all extremities. Sensory grossly intact. Cerebellar exam normal. Normal gait. Vital Signs: 19:58 BP 187 / 96; Pulse 74; Resp 16; Pulse Ox 95% ; Weight 70.31 kg; Pain 5/10; mt2 20:01 BP 152 / 73; Pulse 65; Resp 18; Pulse Ox 99% ; Pain 8/10; ks7 MDM: 19:57 Patient medically screened. tw4 23:50 Differential diagnosis: hypertensive crisis, Malignant HTN. Data reviewed: vital signs, tw4 nurses notes. Data interpreted: Pulse oximetry: Interpretation: normal. Counseling: I had a detailed discussion with the patient and/or guardian regarding: the historical points, exam findings, and any diagnostic results supporting the discharge/admit diagnosis. Special discussion: I discussed with the patient/guardian in detail that at this point there is no indication for admission to the hospital. It is understood, however, that if the symptoms persist or worsen the patient needs to return immediately for re-evaluation. 12/22 20:03 Order name: Basic Metabolic Panel; Complete Time: 21:25 tw4 12/22 21:25 Interpretation: Normal except: CL 108; GFR 75; GLUC 110. 12/22 20:03 Order name: CBC with Diff; Complete Time: 21:25 4 12/22 21:27 Interpretation: Within normal limits. tw12/22 20:03 Order name: LFT's; Complete Time: 21:25 tw4 12/22 21:25 Interpretation: Normal except: A/G 1.0; GLOB 4.0. [facility] 12/22 20:03 Order name: Magnesium; Complete Time: 21:25 [facility] 12/22 21:27 Interpretation: Within normal limits: MG 2.1. 12/22 20:03 Order name: NT PRO-BNP; Complete Time: 21:25 [facility] 12/22 21:27 Interpretation: Within normal limits: NT PRO-BNP 30. [facility] 12/22 20:03 Order name: PT-INR; Complete Time: 21:25 [facility] 12/22 21:27 Interpretation: Within normal limits: PT 10.9. [facility] 12/22 20:03 Order name: Troponin (emerg Dept Use Only); Complete Time: 21:25 [facility] 12/22 21:27 Interpretation: Within normal limits: TROPED < 0.02. [facility] 12/22 20:03 Order name: XRAY Chest (1 view); Complete Time: 21:25 [facility] 12/22 21:27 Interpretation: No acute disease. [facility] 12/22 20:03 Order name: EKG; Complete Time: 20:05 [facility] 12/22 20:03 Order name: Cardiac monitoring 12/22 20:03 Order name: EKG - Nurse/Tech [facility] 12/22 20:03 Order name: IV Saline Lock [facility] 12/22 20:40 Order name: Urine Dipstick--Ancillary (enter results); Complete Time: 21:25 [facility] 12/22 21:27 Interpretation: Normal except: UBLD TRACE. [facility] 12/22 20:03 Order name: Labs collected and sent [facility] 12/22 20:03 Order name: O2 Per Protocol [facility] 12/22 20:03 Order name: O2 Sat Monitoring Administered Medications: 21:35 Not Given (pt bp 125/63 HR 63): hydrALAZINE 10 mg IV at bolus once ks7 Disposition: 12/23/19 21:37 Discharged to Home. Impression: Hypertensive urgency. - Condition is Stable. - Discharge Instructions: Hypertension, Managing Your Hypertension. - Medication Reconciliation Form, Thank You Letter, Antibiotic Education, Prescription Opioid Use form. - Follow up: Private Physician; When: Upon discharge from the Emergency Department; Reason: Recheck today's complaints, Continuance of care, Re-evaluation by your physician. - Problem is new. - Symptoms have improved. Signatures: Dispatcher [employer] Paresh Gonzalez MD MD tw4 Sravanthi Gtz RN RN mt2 Petra Uribe RN ks7 Corrections: (The following items were deleted from the chart) 22:45 21:37 12/23/2019 21:37 Discharged to Home. Impression: Hypertensive urgency. Condition mt2 is Stable. Forms are Medication Reconciliation Form, Thank You Letter, Antibiotic Education, Prescription Opioid Use. Follow up: Private Physician; When: Upon discharge from the Emergency Department; Reason: Recheck today's complaints, Continuance of care, Re-evaluation by your physician. Problem is new. Symptoms have improved. tw4
[2019-12-23 23:11] VITALS: BP 152/73; O2SAT 99
--- NOTE | 2019-12-24 05:57 | EKG ---
Test Date: 2019-12-23 Test Time: 20:13:27 [employer]ipe [employer]: STEPHANIE Mejia MEASUREMENT RESULTS: Intervals: Rate: 68 LA: 136 QRSD: 82 QT: 404 QTc: 429 [place]: P: 61 LA: 136 QRS: 9 T: 55 INTERPRETIVE STATEMENTS: Normal sinus rhythm Normal ECG Compared to ECG 05/28/2018 17:26:38 No significant changes Electronically Signed On 12-24-19 05:56:27 CDT by Eren Hernadez
== END 2019-12-23 22:45 | disposition home or self-care (01) ==
LOC: ER 19:55
DX: I16.0 Hypertensive urgency (principal)
CPT/HCPCS: 36415; 71045; 80048; 80076; 81003; 83735; 83880; 84484; 85025; 85610; 93005; 99284

== ENCOUNTER 2023-09-13 20:18 | Emergency (ER) | payer OTHER ==
--- OUTSIDE RECORDS SUMMARY | 2023-09-13 20:22 | XMS REPORT | Continuity of Care Document ---
Author Name Unknown Address [address] [facility] [address] [place] [address] [facility] Address [address] [facility] [address] [place] [address] Care Team Providers Care Leases And Land Supervisor Name Role Phone Justina Conway Primary Care Physician [phone] Freya Conway Attending Clinician UnavailJONO Waite Attending Clinician Unavailab KADEN Guerra Attending Clinician Unavailwalker e Vtc-Lab Attending Clinician Unavailable Jono Gonzalez DO Attending Clinician [phone] Doctor Unassigned, [place] Attending Clinician U navaillucy Pob, Adc Lab Main Attending Clinician Unavailwalker e Pcp-Lab Attending Clinician Unavailable Jessica Shields PA-C Attending Clinician [phone] JESSICA SHIELDS Attending Clinician Unavailable NAREN JEAN-BAPTISTE Attending Clinician Unavailable Justina Conway Attending Clinician [phone] JONO GONZALEZ Admitting Clinician Unavailab luis Payers Payer Name Policy Type Policy Number Effective Date Expirati on Date Source Problems Condition Name Condition Details Condition Category Status Onset Date Resolution Date Last Treatment Date Treating Clinician Comments Source Cataracts, bilateral Cataracts, bilateral Disease Active 2017-05 00:00: 00 [facility] Persistent insomnia Persistent insomnia Disease Active 2013-05 00:00: 00 [facility] Chronic pain syndrome Chronic pain syndrome Disease Active 02-17 00:00: 00 [facility] Acute upper respirator y infection Acute upper respirator y infection Disease Active 02-17 00:00: 00 Overview: Formattin g of this note might be different from the original. ICD10 Diagnosis Term Enchilada [employer] Utility [facility] Thyroid function study abnormalit y Thyroid function study abnormalit y Disease Active 11-18 00:00: 00 [facility] Encounter for long-term (current) use of other medication s Encounter for long-term (current) use of other medication s Disease Active 07-28 00:00: 00 [facility] Rheumatoid arthritis Rheumatoid arthritis Disease Active 12-23 00:00: 00 Overview: Formattin g of this note might be different from the original. ICD10 Diagnosis Term [employer] [facility] Myalgia and myositis Myalgia and myositis Disease Active 12-23 00:00: 00 Overview: Formattin g of this note might be different from the original. ICD10 Diagnosis Term Enchil[employer] [facility] Allergies, Adverse Reactions, Alerts Allergy Name Allergy Type Status Severity Reaction(s) Onset Date Inactive Date Treating Clinician Comments Source KYLER SANDHUIN DRUG INGREDI Active Anaphylaxis 07-07 00:00: 00 [facility] Azithtucker ycin Propensi ty to adverse reaction s Active Anaphylaxis 07-07 00:00: 00 [facility] Social History Social Habit Start Date Stop Date Quantity Comments Source Gender identity [facility] intake 2023-08-04 00:00:00 2023-08-04 00:00:00 Current non-drinker of alcohol (finding) [facility] Exposure to SARS-CoV-2 (event) 2022-08-15 00:00:00 2022-08-25 09:37:00 Not sure [facility] Tobacco Comment 2022-02-02 00:00:00 2022-02-02 00:00:00 quit 3yrs ago [facility] History of Social function 2022-02-02 00:00:00 2022-02-02 00:00:00 [facility] Tobacco use and exposure 2022-02-02 00:00:00 2022-02-02 00:00:00 Smokeless tobacco non-user [facility] History of tobacco use 2009-12-28 00:00:00 Cigarette Smoker [facility] Sex Assigned At 1965 00:00:00 1965 00:00:00 [facility] Smoking Status Start Date Stop Date Source Ex-smoker 2022-02-02 00:00:00 2022-02-02 00:00[facility]00 [facility] Medications Ordered Medication Name Filled Medication Name Start Date Stop Date Current Medication? Ordering Clinician Indication Dosage Frequency Signature (SIG) Comments Components Source TRICOR 145 MG ORAL TAB 02-02 09:42: 12 02-02 00:00 :00 No Take one tablet by mouth daily. [facility] gemfibroziL 600 mg tablet 01-22 00:00: [address] [facility] hydrOXYzine 25 mg tablet 06-26 00:00: [address] [facility] escitalopra m oxalate 10 mg tablet 06-26 00:00: 00 02-02 00:00 :[address] [facility] calcium citrate/vit mead D3 (CITRACAL + D ORAL) 01-20 10:59: 14 Yes 2{tbl} Take 2 tablets by mouth 2 (two) times daily. [facility] hydrOXYchlo roQUINE 200 mg tablet 2019-05 00:00: 00 Yes [id number] TAKE 1 AND 1/2 TABLETS BY MOUTH AT BEDTIME [facility] cetirizine 10 mg tablet 2017-05 00:00: 00 Yes TK [address] [facility] HYDROcodone -acetaminop hen 7.5-325 mg per tablet 10-06 00:00: 00 Yes TK [address] [facility] levothyroxi ne (SYNTHROID) 88 mcg tablet 01-18 00:00: 00 Yes TK [address] [facility] carvedilol (COREG) 3.125 mg tablet 11-04 00:00: 00 Yes [facility] Vital Signs Vital Name Observation Time Observation Value Comments Diann morataya Systolic blood pressure 2023-08-04 16:12:00 123 mm[Hg] [facility] Diastolic blood pressure 2023-08-04 16:12:00 78 mm[Hg] [facility] Heart rate 2023-08-04 16:12:00 77 /min [facility] Body temperature 2023-08-04 16:12:00 36.44 Lola [facility] Body height 2023-08-04 16:12:00 157.5 cm [facility] Body weight 2023-08-04 16:12:00 68.493 kg [facility] BMI 2023-08-04 16:12:00 27.62 kg/m2 [facility] Oxygen saturation in Arterial blood by Pulse oximetry 2023-08-04 16:12:00 97 /min [facility] Systolic blood pressure 2023-03-01 14:22:00 164 mm[Hg] [facility] Diastolic blood pressure 2023-03-01 14:22:00 79 mm[Hg] [facility] Heart rate 2023-03-01 14:22:00 53 /min [facility] Body temperature 2023-03-01 14:21:00 35.56 Lola [facility] Respiratory rate 2023-03-01 14:21:00 16 /min [facility] Body height 2023-03-01 14:21:00 157.5 cm [facility] Body weight 2023-03-01 14:21:00 67.813 kg [facility] BMI 2023-03-01 14:21:00 27.34 kg/m2 [facility] Oxygen saturation in Arterial blood by Pulse oximetry 2023-03-01 14:21:00 99 /min ra [facility] Systolic blood pressure 2022-08-25 14:44:00 129 mm[Hg] [facility] Diastolic blood pressure 2022-08-25 14:44:00 80 mm[Hg] [facility] Heart rate 2022-08-25 14:44:00 65 /min [facility] Body temperature 2022-08-25 14:44:00 35.61 Lola [facility] Respiratory rate 2022-08-25 14:44:00 18 /min [facility] Body height 2022-08-25 14:44:00 157.5 cm [facility] Body weight 2022-08-25 14:44:00 68.13 kg [facility] BMI 2022-08-25 14:44:00 27.47 kg/m2 [facility] Oxygen saturation in Arterial blood by Pulse oximetry 2022-08-25 14:44:00 99 /min [facility] Systolic blood pressure 2022-02-02 14:33:00 141 mm[Hg] [facility] Diastolic blood pressure 2022-02-02 14:33:00 76 mm[Hg] [facility] Heart rate 2022-02-02 14:33:00 54 /min [facility] Body temperature 2022-02-02 14:32:00 35.61 Lola [facility] Respiratory rate 2022-02-02 14:32:00 16 /min [facility] Body height 2022-02-02 14:32:00 157.5 cm [facility] Body weight 2022-02-02 14:32:00 67.132 kg [facility] BMI 2022-02-02 14:32:00 27.07 kg/m2 [facility] Oxygen saturation in Arterial blood by Pulse oximetry 2022-02-02 14:32:00 98 /min [facility] Procedures Procedure Date / Time Performed Performing Clinicia n Source REFERRAL- REQUEST/RESPONSE 2023-07-19 06:01:00 Doctor Unassigned, [place] [facility] DEXA AXIAL (HIP AND SPINE) 2023-03-11 14:01:27 Jono Gonzalez [facility] EXTERNAL PROVIDER RECORDS 2023-03-03 05:01:00 Doctor Unassigned, [place] [facility] REFERRAL- REQUEST/RESPONSE 2023-02-23 05:01:00 Doctor Unassigned, [place] [facility] EXTERNAL PROVIDER RECORDS 2022-07-23 06:01:00 Doctor Unassigned, [place] [facility] Encounters Start Date/Time End Date/Time Encounter Type Admission Type Attending [facility] Care Facility Care Department Encounter ID Source 2021-10-15 08:01:[address] [facility] [id number] [facility] 2023-08-26 07:20:25 2023-08-26 07:20:25 Outpatient SFA SFA [id number] Last Kim 2023-08-15 15:22:54 2023-08-15 15:22:54 Outpatient SFA SFA [id number] Last Kim 2023-08-04 11:30:00 2023-08-04 11:45:00 Mds Nurse Visit Vtc-Lab Jono Gonzalez [facility] 1.840.114 350.1.13.10 4.2.7.2.[id number] [facility] 2023-08-04 11:30:00 2023-08-04 11:30:00 Outpatient R JONO GONZALEZ [facility] [id number] [facility] 2023-08-04 11:00:00 2023-08-04 11:30:00 Office Visit Jono Gonzalez [facility] 1.840.114 350.1.13.10 4.2.7.2.[id number] [facility] 2023-08-01 11:32:28 2023-08-01 11:32:28 Outpatient SFA SFA [id number] Last Kim 2023-07-27 08:55:31 2023-07-27 08:55:31 Outpatient SFA SFA [id number] Last Kim 2023-07-25 00:00:00 2023-07-25 00:00:00 Telephone Jono Gonzalez [facility] 1..840.114 350.1.13.10 4.2.7.2.[id number] [facility] 2023-07-22 14:16:50 2023-07-22 14:16:50 Outpatient SFA [facility] [id number] Last Kim 2023-07-19 00:00:00 2023-07-19 00:00:00 Orders Only Doctor Unassigned, [place] [facility] 1.840.114 350.1.13.10 4.2.7.2.[id number] [facility] 2023-06-16 00:00:00 2023-06-16 00:00:00 Telephone Jono Gonzalez [facility] 1.840.114 350.1.13.10 4.2.7.2.[id number] [facility] 2023-05-20 08:33:45 2023-05-20 08:33:45 Outpatient [facility] [id number] Last Kim 2023-05-17 11:14:06 2023-05-17 11:14:06 Outpatient [facility] [id number] Last Kim 2023-04-12 11:18:57 2023-04-12 11:18:57 Outpatient [facility] [id number] Last Kim 2023-03-24 00:00:00 2023-03-24 00:00:00 Outpatient Roberto GONZALEZJONO [facility] [id number] [facility] 2023-03-11 08:07:16 2023-03-11 23:59:00 Outpatient R SIVAKUMAR GONZALEZMOND [facility] [id number] [facility] 2023-03-11 08:07:16 2023-03-11 23:59:00 Hospital Encounter JessicaeberJono [facility] 1.2840.114 350.1.13.10 4.2.7.2.[id number] [facility] 2023-03-11 09:15:00 2023-03-11 09:30:00 Mds Nurse Visit Pob, Adc Lab Main Jono Gonzalez [facility] 1.2.840.114 350.1.13.10 4.2.7.2.[id number] [facility] 2023-03-03 00:00:00 2023-03-03 00:00:00 Orders Only Doctor Unassigned, [place] [facility] 1.2.840.114 350.1.13.10 4.2.7.2.[id number] [facility] 2023-03-01 10:00:00 2023-03-01 10:30:00 Office Visit Jono Gonzalez [facility] 1.2.840.114 350.1.13.10 4.2.7.2.[id number] [facility] 2023-03-01 10:00:00 2023-03-01 10:00:00 Outpatient R JONO GONZALEZ [facility] [id number] [facility] 2023-03-01 00:00:00 2023-03-01 00:00:00 Telephone Jono Gonzalez [facility] 1.2840.114 350.1.13.10 4.2.7.2.[id number] [facility] 2023-02-23 13:44:14 2023-02-23 13:44:14 Outpatient SFA SFA [id number] Last Rodriges Julio 2023-02-23 00:00:00 2023-02-23 00:00:00 Orders Only Doctor Unassigned, [place] [facility] 1.2.840.114 350.1.13.10 4.2.7.2.[id number] [facility] 2023-02-08 09:24:43 2023-02-08 09:24:43 Outpatient SFA SFA [id number] Last Kim 2023-02-04 00:00:00 2023-02-04 00:00:00 Telephone Jono Gonzalez [facility] 1.2.840.114 350.1.13.10 4.2.7.2.[id number] [facility] 2023-01-24 11:45:58 2023-01-24 11:45:58 Outpatient [facility] [id number] Last Kim 2023-01-21 08:41:54 2023-01-21 08:41:54 Outpatient [facility] [id number] Last Kim 2022-09-13 00:00:00 2022-09-13 00:00:00 Telephone Jono Gonzalez [facility] 1.2.840.114 350.1.13.10 4.2.7.2.[id number] [facility] 2022-08-25 11:15:00 2022-08-25 11:30:00 Mds Nurse Visit Pcp-Lab Jono Gonzalez [facility] 1.2.840.114 350.1.13.10 4.2.7.2.[id number] [facility] 2022-08-25 10:00:00 2022-08-25 10:05:06 Outpatient R SIVAKUMAR GONZALEZMOND [facility] [id number] [facility] 2022-08-25 10:00:00 2022-08-25 10:05:06 Office Visit Jono Gonzalez [facility] 1.2.840.114 350.1.13.10 4.2.7.2.[id number] [facility] 2022-07-23 00:00:00 2022-07-23 00:00:00 Orders Only Doctor Unassigned, [place] [facility] 1.2.840.114 350.1.13.10 4.2.7.2.[id number] [facility] 2022-02-02 10:45:00 2022-02-02 11:00:00 Mds Nurse Visit Pcp-Lab Carlos Jono Brumfield [facility] 1.2840.114 350.1.13.10 4.2.7.2.[id number] [facility] 2022-02-02 10:00:00 2022-02-02 10:00:00 Outpatient R CARLOS JONO [facility] [id number] [facility] 2022-02-02 10:00:00 2022-02-02 10:00:00 Office Visit Jesiscaeber Jono Brumfield [facility] 1.84.114 350.1.13.10 4.2.7.2.[id number] [facility] 2022-02-02 10:00:00 2022-02-02 09:50:21 Outpatient R CARLOS JONO [facility] [id number] [facility] 2022-02-02 00:00:00 2022-02-02 00:00:00 Orders Only Doctor Unassigned, [place] [facility] 1.0.114 350.1.13.10 4.2.7.2.[id number] [facility] 2021-08-14 10:30:00 2021-08-14 10:45:00 Mds Nurse Visit Pob, Adc Lab Jessica Guevara [facility] 1.84.114 350.1.13.10 4.2.7.2.[id number] [facility] 2021-08-14 10:30:00 2021-08-14 10:30:00 Outpatient R JESSICA SHIELDS [facility] [id number] [facility] 2021-08-14 00:00:00 2021-08-14 00:00:00 Orders Only Doctor Unassigned, [place] [facility] 1.2.840.114 350.1.13.10 4.2.7.2.[id number] [facility] 2021-08-07 00:00:00 2021-08-07 00:00:00 Orders Only Doctor Unassigned, [place] [facility] 1.2840.114 350.1.13.10 4.2.7.2.[id number] [facility] 2021-07-28 11:00:00 2021-07-28 12:18:11 Office Visit CarlosJono [facility] 1.2840.114 350.1.13.10 4.2.7.2.[id number] [facility] 2021-07-28 11:00:00 2021-07-28 12:18:11 Outpatient R SIVAKUMAR GONZALEZMOND [facility] [id number] [facility] 2021-07-28 11:00:00 2021-07-28 11:00:00 Outpatient R SIVAKUMAR GONZALEZMOND [facility] [id number] [facility] 2021-03-31 00:00:00 2021-03-31 00:00:00 Telephone Sivakumar Gonzalezmond [facility] 1.2840.114 350.1.13.10 4.2.7.2.[id number] [facility] 2021-03-27 10:58:47 2021-03-27 23:59:00 Outpatient R CARLOS JONO [facility] [id number] [facility] 2021-03-27 10:40:00 2021-03-27 23:59:00 Hospital Encounter Sivakumar Gonzalezreema Brumfield [facility] 1.2840.114 350.1.13.10 4.2.7.2.[id number] [facility] 2021-03-13 10:15:00 2021-03-13 10:15:00 Outpatient NAREN NGUYỄN [facility] [id number] [facility] 2021-03-09 00:00:00 2021-03-09 00:00:00 Telephone Jono Gonzalez [facility] 1.2.840.114 350.1.13.10 4.2.7.2.[id number] [facility] 2021-02-20 10:15:00 2021-02-20 10:15:00 Outpatient NAREN NGUYỄN [facility] [id number] [facility] 2021-01-22 00:00:00 2021-01-22 00:00:00 Telephone Justina Conway [facility] 1.2.840.114 350.1.13.10 4.2.7.2.[id number] [facility] 2021-01-20 11:51:44 2021-01-20 23:59:00 Hospital Encounter Jono Gonzalez [facility] 1.2.840.114 350.1.13.10 4.2.7.2.[id number] [facility] 2021-01-20 11:32:30 2021-01-20 11:47:30 Mds Nurse Visit Pcp-Lab Jono Gonzalez [facility] 1.2.840.114 350.1.13.10 4.2.7.2.[id number] [facility] 2021-01-20 11:32:30 2021-01-20 11:47:30 Mds Nurse Visit Pcp-Lab Jono Gonzalez [facility] 1.2.840.114 350.1.13.10 4.2.7.2.[id number] [facility] 2021-01-20 10:49:43 2021-01-20 11:38:07 Office Visit Sivakumar Gonzalezmond [facility] 1.2.840.114 350.1.13.10 4.2.7.2.[id number] [facility] 2021-01-20 11:00:00 2021-01-20 11:00:00 Outpatient R CARLOS JONO [facility] [id number] [facility] 2021-01-20 00:00:00 2021-01-20 00:00:00 Telephone Sivakumar Gonzalezmond [facility] 1.2840.114 350.1.13.10 4.2.7.2.[id number] [facility] 2021-01-20 00:00:00 2021-01-20 00:00:00 Orders Only Doctor Unassigned, [place] [facility] 1.2840.114 350.1.13.10 4.2.7.2.[id number] [facility] 2021-01-20 00:00:00 2021-01-20 00:00:00 Orders Only Doctor Unassigned, [place] [facility] [facility] 1.2.840.114 350.1.13.10 4.2.7.2.[id number] [facility] 2020-04-22 15:00:00 2020-04-22 15:00:00 Outpatient R JONO GONZALEZ [facility] [id number] [facility] 2020-04-22 08:25:55 2020-04-22 08:45:55 Telemedici ne Visit Jono Gonzalez [facility] 1.2.840.114 350.1.13.10 4.2.7.2.[id number] [facility] 2020-04-15 15:40:00 2020-04-15 15:40:00 Outpatient R JONO GONZALEZ [facility] [id number] [facility] 2020-04-15 07:57:21 2020-04-15 08:12:21 Telemedici ne Visit Jono Gonzalez [facility] 1.2.840.114 350.1.13.10 4.2.7.2.[id number] [facility] 2020-04-08 10:20:00 2020-04-08 10:20:00 Outpatient R JONO GONZALEZ [facility] [id number] [facility] 2020-01-01 10:58:01 2020-01-01 11:08:01 Mds Nurse Visit Pcp-Lab Jono Gonzalez [facility] 1.2.840.114 350.1.13.10 4.2.7.2.[id number] [facility] 2020-01-01 10:58:01 2020-01-01 11:08:01 Mds Nurse Visit Pcp-Lab [facility] 1.2.840.114 350.1.13.10 4.2.7.2.686 [id number] 2020-01-01 10:40:00 2020-01-01 10:40:00 Outpatient R JONO GONZALEZ [facility] [id number] [facility] 2020-01-01 08:00:37 2020-01-01 08:20:37 Telemedici ne Visit Jono Gonzalez [facility] 1.2.840.114 350.1.13.10 4.2.7.2.[id number] [facility] 2020-01-01 08:00:37 2020-01-01 08:20:37 Telemedici ne Visit Jono Gonzalez [facility] 1.2.840.114 350.1.13.10 4.2.7.2.686 [id number] 2019-11-06 11:00:00 2019-11-06 11:00:00 Outpatient R JONO GONZALEZ [facility] [id number] [facility] 2019-01-24 12:29:00 2019-01-24 12:39:00 Mds Nurse Visit Pcp-Lab Jono Gonzalez [facility] 1.2.840.114 350.1.13.10 4.2.7.2.[id number] [facility] 2019-01-24 12:29:00 2019-01-24 12:39:00 Mds Nurse Visit Pcp-Lab [facility] 1.2.840.114 350.1.13.10 4.2.7.2.686 [id number] 2019-01-24 10:56:11 2019-01-24 11:33:28 Office Visit Jono Gonzalez [facility] 1.2.840.114 350.1.13.10 4.2.7.2.[id number] [facility] 2019-01-24 10:56:11 2019-01-24 11:33:28 Office Visit Jono Gonzalez [facility] 1.2.840.114 350.1.13.10 4.2.7.2.686 [id number] 2019-01-24 00:00:00 2019-01-24 00:00:00 Orders Only Doctor Unassigned, [place] [facility] 1.2.840.114 350.1.13.10 4.2.7.2.[id number] [facility] Notes Date/Time Note Provider Source 2023-08-04 11:30:00 RXxR7sP9JvqdaY8c0IAL 3sMMSHHh7bM0PX AgYANjD4eNGyECqBNYR9XFgdJ2/AwK0089 --T11:30:00 Images from the original note were not included.Venipuncture collection performed by clean technique on the right anticubitus. Total of 1 attempts were made. Slight pressure and a bandage/dressing were applied to the site(s). The patient experienced no complications. The following specimens were processed according to instructions and sent to [facility] laboratories per lab order on 08/04/2023:LT BLUESST 1REDLAV 1PPTDK GREEN (LiHep)DK GREEN (SodH)GRAYDK BLUE (K2)DK BLUE (S)ACDBlood CultureNIPT/NTD 53403-1Mmpmf JpedFI3785-43-13A73:10:40Nurse NoteTXT1.2.840.038568.1.13.104.2.7 .2.617006|[id number] for patient xrzd19496-9Mxmbd NoteLNNARRATIVEFormatted C-CDA narrative textUT[address] Kh[id number] 53FWQPUMIEOBCBISTXMWFJDM7631-59-42 T11:10:401.2.840.378029.1.72.3.15| 1.2.840.063246.1.13.104.2.7.2.7278 79_[id number] [facility] 2023-07-25 12:22:37 SkX/RS+uNmWZnc2Vkykk nBlxCXJsgQyInK i+oNXURKsK5WVHK8PFK+Xwa6x+EBoi6936T12:22:37 Can't find it. Can you direct me to the correct tab and confirm upload date? 39883-3Acdzmkyst encounter LllvSU7484-24-32K29:23:02Telephone encounter NoteTXT1.2.840.040855.1.13.104.2.7 .2.968490|[id number] for patient ngmn00937-4CqueFQJYTERCKAMXcgmgnan d C-CDA narrative textUT01 Gonzalez [id number] 97PJVMSYCQUUPKHNZVGVRKPZ9012-11-91 T12:23:021.2.840.221254.1.72.3.15| 1.2.840.923027.1.13.104.2.7.2.7278 79_[id number] [facility] 2023-07-25 11:21:47 TXhhNHzPwoWUsMzKYRma DQvLt6Mb1vKCrA Wxwdy6cZoLmOnqxlR0NUKeQQxEVZft9269 -02-26T11:21:47 Uploaded to pt's chart: Pain Management [facility] Report 08/20/2023.Guerline vicente, [facility]07/25/2023 11:22 am 50490-5Wdyxqzeuu encounter FrotQV8690-00-46R10:22:39Telephone encounter NoteTXT1.2.840.482126.1.13.104.2.7 .2.179358|[id number] for patient etch27866-0ZzwmPLMOPRBEYLVQizyxxxs d C-CDA narrative [id number] M KincaidUT[address] [id number] 98UGBNXJEHBYZTSYMNAFCASD3733-16-74 T11:22:391.2.840.318082.1.72.3.15| 1.2.840.995681.1.13.104.2.7.2.7278 [id number] Guerline Dumont [facility] 2023-06-17 09:05:53 35JVmKQ2tejvqpbMGh7v SUKxMhunUSHBEa sc5fKFG2A+zQSa9LBcu8J0azqzINoJ3900 -01-19T09:05:53 Pt has been scheduled and confirmed. 52901-3Qpdmkebnw encounter UrayCP8362-15-28L40:06:27Telephone encounter NoteTXT1.2.840.503697.1.13.104.2.7 .2.220399|[id number] for patient jjod70423-6CyoyNXLHFPWHEYRAdbfqjmb d C-CDA narrative jxmk863979266PfmxpmBlossom Armas[id number] 85RLAYUDDHPXZHINUXTAQEWY8789-01-00 T09:06:271.2.840.894451.1.72.3.15| 1.2.840.155695.1.13.104.2.7.2.7278 [id number] Bloss[address]as [facility] 2023-06-17 08:13:32 ju13ls2VmsdONuNgco7I ijIfvHDkeCQ3Zi uxbc3v9vMi/KOE52YIhsL+5xLQxE754209 -01-19T08:13:32 Routing to Rheumatology to assist 10979-7Ybztgisoi encounter DtvnZP9249-25-95L82:14:57Telephone encounter NoteTXT1.2.840.997139.1.13.104.2.7 .2.257674|[id number] for patient hnid76927-8BigeYPEYNLFIATUYhuoaznh d C-CDA narrative uhgq925808404Znzkt Schutz [id number] 73NOEAJAEIHKJLASLKAOFIRI8272-13-36 T08:14:571.2.840.031852.1.72.3.15| 1.2.840.703082.1.13.104.2.7.2.7278 [id number] Phyllis Nascimento TINA [facility] 2023-06-16 16:55:26 vAIV0dPumgb/UxMpFzA1 Bqn0J7e79OxGfe TgPSDscSs4Sw9+Qn3IH2J3IE5UleyU1136 -01-18T16:55:26 Mamie Zapata is a 58 year old femalePatient calling about appointment scheduled for August that is marked for reschedule needed. Please call to reschedule as early as possible. She would prefer to be seen in [place]. Please advise 32947-7Kykmalymg encounter XbmnOI7838-84-78B64:00:51Telephone encounter NoteTXT1.2.840.585541.1.13.104.2.7 .2.205629|[id number] for patient ynuj61960-1NkykWIGXLTXIKOTAvwtaopm d C-CDA narrative [id number] D [address] Ek[id number] 09EAJEFOWREEYBYNUCXPHTSL7530-98-94 T17:00:511.2.840.869079.1.72.3.15| 1.2.840.170082.1.13.104.2.7.2.7278 [id number] August Emy Beebe [facility] 2023-02-04 14:26:12 sctBkifiyDTXz8t3SXgh 2OKhHpEiKvVxaX B8anv9wBh1e9IeKBRuJvuYvs0MBhJR0164 -09-08T14:26:12 Faxed referral to Pain clinic in [facility]. Informed patient of the above. Patient verbalized understanding. 49879-5Eismemann encounter IcmkLF6830-69-16M14:26:45Telephone encounter NoteTXT1.2.840.566124.1.13.104.2.7 .2.411012|[id number] for patient kmvd37425-0OstrGH855426441Bytzcte P Archuleta [id number] 53KFIEJPAKZJMIVRXTBXLEXR4476-32-58 T14:26:451.2.840.125922.1.72.3.15| 1.2.840.653728.1.13.104.2.7.2.7278 [id number] Regina Raphael [facility] 2023-02-04 14:07:02 YAKM3mt0Rmn5QsDqj2qJ OzWR78EYDO60m5 2N5ohDs3NazXhLQk78pP9KySAcCM611492 -09-08T14:07:02 Addended by: JESSICA SHIELDS PA-C on: 02/04/2023 02:07 PM Modules accepted: Orders 75570-0Ohehoece LmydjxepYF4529-53-37C71:07:02Adden dum DocumentTXT1.2.840.763869.1.13.104 .2.7.2.521979|[id number] e for patient udqt34061-6CuphXBYPIVQSIO[id number] 51LSFSPTVYVCZPQGGCIXJDRJ9882-06-55 T14:07:021.2.840.536676.1.72.3.15| 1.2.840.873717.1.13.104.2.7.2.7278 [id number] [facility] 2023-02-04 14:06:42 XCHl7mM1ZX/M6dfjU4eA z9kW0FkGVHQ2a2 D7p5Ev2gRcUoypghnwM4Xr0nkZ/Xju8569T14:06:42 Order placed per patient request. 65184-2Mjrjwaadt encounter TuzoUC5245-07-36L19:06:52Telephone encounter NoteTXT1.2.840.752215.1.13.104.2.7 .2.672424|[id number] for patient izaa25333-6VorcNQKQYUWQKJ[id number] 86MKEIAKNOAKZMYRBQOIKQXS8358-25-22 T14:06:521.2.840.652823.1.72.3.15| 1.2.840.758548.1.13.104.2.7.2.7278 [id number] [facility] 2023-02-04 13:56:42 ftxuQ6ZGixC+7bIl4anD DoMCTE8KCMy5iU bT1/Xsi30b+CjFKliufuczYQwEmiyf9007 -09-08T13:56:42 Spoke to patient. Pain referral for pain in knees, hands and joints. Patient stated to send referral to [facility] to see Dr Skinner for pain and opioid RX.Patient will be seeing Norris Pham MD. For pain management 35070-5Ujxybevdp encounter EtelWE4236-12-51L15:59:17Telephone encounter NoteTXT1.2.840.305706.1.13.104.2.7 .2.175267|[id number] for patient ijbn37346-1RwvhDC648036513Qvxvuii P Archuleta RN[id number] 70MWDFCBOMDYPSDDVCDXCTPU6042-84-41 T13:59:171.2.840.382642.1.72.3.15| 1.2.840.345758.1.13.104.2.7.2.7278 [id number] Regina P Donavon RN [facility] 2023-02-04 13:00:03 /szlDGXQ52xQBWMk7iuY N1ImKUuZJIMO+h VF1qvLxc+gzmbJDsh/6rBKT7SMk3V08814 -09-08T13:00:03 What's the reason for the referral? 25432-6Masgepqdb encounter UhehIX1955-00-48X54:00:14Telephone encounter NoteTXT1.2.840.896740.1.13.104.2.7 .2.069184|[id number] for patient kcyk62883-2RbsnLSQU-QDTTLQUGF SKIMMER SCOOP OPERATOR MIDLEVEL PROVIDERTONIO-PHYSICIAN SKIMMER SCOOP OPERATOR MIDLEVEL PROVIDER[id number] 83PQXCMZVJBQAMXRNTWBUIIT8435-00-56 T13:00:141.2.840.147199.1.72.3.15| 1.2.840.882660.1.13.104.2.7.2.7278 [id number] TONIO-PHYSICIAN SKIMMER SCOOP OPERATOR MIDLEVEL PROVIDER [facility] 2023-02-04 11:45:21 qo/x27WGTQpEUV4pIPDx VqEu+PuGFdFVFV VU59wmjEuktWRrBqhtVeh5QvgbDcbB8513 -09-08T11:45:21 Need pain referral order 14173-3Rlxcboxqd encounter OnqbNB7903-44-47D75:45:57Telephone encounter NoteTXT1.2.840.046922.1.13.104.2.7 .2.335828|[id number] for patient lrqk13545-3UvchSO241049013Acyfsne P Archuleta [id number] 61UREHRKBLXYRBUKMGXTXJVV7087-63-66 T11:45:571.2.840.805452.1.72.3.15| 1.2.840.771667.1.13.104.2.7.2.7278 [id number] Regina Raphael RN [facility] 2023-02-04 11:43:44 lzlNZkgN5EOMz+J3gV7t kXYF54HrBdXymJ cX6Zs5SZASZIOlZRQohOAw852/qZIA46152022T11:43:44 Pt is calling back to provide the fax number [phone]. 66437-5Hpwjopgia encounter BnntZM5125-21-28I85:45:45Telephone encounter NoteTXT1.2.840.677051.1.13.104.2.7 .2.089566|[id number] for patient xrpn78478-3FtcyQD656686468Eqrcnxx P Clark[id number] 11YFSDFTLEJGGGGMWBHPNFBP2978-37-46 T11:45:451.2.840.219470.1.72.3.15| 1.2.840.739956.1.13.104.2.7.2.7278 [id number] Sage Shelley Deniz [facility] 2023-02-04 11:33:45 9aIh7xkq+qGKlNdtUElD 5HGzDF6SGrcgwF hHtIej9VI2gtyYU8V+e7ZMVLBghNir8011 -09-08T11:33:45 Mamie Zapata is a 57 year old femalePt is wanting a referral faxed to Dr. Norris Pham for pain management. [address] [place] [address] dr. [place], [place] [address]Bj: [phone] signed by Ankita Gamez at 02/04/2023 11:37 AM SHA81774-6Gaggcqzvm encounter QvaiDJ7597-18-26B68:37:06Telephone encounter NoteTXT1.2.840.111151.1.13.104.2.7 .2.279754|[id number] for patient dgij67537-7AhoyPZ544498522Dncgqt M Cook[address] Lgfp[id number] 01LXJBUODCROYZFZJJMKTZTG9457-61-26 T11:37:061.2.840.638218.1.72.3.15| 1.2.840.813023.1.13.104.2.7.2.7278 [id number] Ankita Gamez [facility]"
[2023-09-13] MEDS ORDERED: LIDOCAINE 2% W/EPI 1:200,000 MPF 20 ML VIAL IM ONE (20:34)
--- NOTE | 2023-09-13 22:33 | EDPHYS ---
Physician Documentation [facility] Name: Gayla Zapata Age: 58 yrs Sex: Female : 1965 Arrival Date: 09/13/2023 Time: 20:18 Bed 7 Private MD: ED Physician Mika Beckett HPI: 09/12 22:21 This 58 yrs old Female presents to ER via Ambulatory with complaints of Tooth sp4 extraction: won't stop bleeding.. 22:21 58 -year-old female presents with right upper gingival bleeding after dental sp4 extraction. Patient had dental extraction tooth #2 dental clinic at 11 AM today. At home she developed moderate bleeding that is persistent.. Historical: - Allergies: 20:29 No Known Allergies; as6 - PMHx: 20:29 Hypertensive disorder; Hypothyroidism; Hypercholesterolemia; as6 - PSHx: 20:29 eye; as6 - Immunization history:: Adult Immunizations up to date. - Infectious Disease History:: Denies. - Social history:: Smoking status: Patient denies any tobacco usage or history of. - Family history:: not pertinent. ROS: 22:21 Constitutional: Negative for fever, chills, and weight loss, positive dental bleed. sp4 22:21 All other systems are negative, Exam: 22:49 Constitutional: This is a well developed, well nourished patient who is awake, alert, sp4 and in no acute distress. Head/Face: Normocephalic, atraumatic. Eyes: Pupils equal round and reactive to light, extra-ocular motions intact. Lids and lashes normal. Conjunctiva and sclera are not injected. Cornea within normal limits. Periorbital areas with no swelling, redness, or edema. ENT: Nares patent. No nasal discharge, no septal abnormalities noted. Tympanic membranes are normal and external auditory canals are clear. Oropharynx with no redness, swelling, or masses, exudates, or evidence of obstruction, uvula midline. Mucous membranes moist. There is a right upper bleeding dental alveolus at the site of tooth #2 extraction. There is moderate bleeding from the alveolus. Otherwise normal exam Neck: Trachea midline, no thyromegaly or masses palpated, and no cervical lymphadenopathy. Supple, full range of motion without nuchal rigidity, or vertebral point tenderness. Chest/axilla: Normal chest wall appearance and motion. Nontender with no deformity. No lesions are appreciated. Cardiovascular: Regular rate and rhythm with a normal S1 and S2. No gallops, murmurs, or rubs. Normal PMI, no JVD. No pulse deficits. Respiratory: Lungs have equal breath sounds bilaterally, clear to auscultation and percussion. No rales, rhonchi or wheezes noted. No increased work of breathing, no retractions or nasal flaring. Abdomen/GI: Soft, with normal bowel sounds. No distension or tympany. No guarding or rebound. No evidence of tenderness throughout. Back: No spinal tenderness. No costovertebral tenderness. Skin: Warm, dry with normal turgor. Normal color with no rashes, no lesions, and no evidence of cellulitis. MS/ Extremity: Pulses equal, no cyanosis. Neurovascular intact. Full, normal range of motion. Neuro: Awake and alert, GCS 15, oriented to person, place, time, and situation. Cranial nerves II-XII grossly intact. Motor strength 5/5 in all extremities. Sensory grossly intact. Psych: Awake, alert, with orientation to person, place and time. Behavior, mood, and affect are within normal limits Vital Signs: 20:26 BP 224 / 104; Pulse 87; Resp 18 S; Temp 98.1(TE); Pulse Ox 97% on R/A; Weight 65.77 kg as6 (R); Height 5 ft. 3 in. (R); Pain 0/10; 20:40 BP 220 / 106; Pulse 90; Resp 19 S; Pulse Ox 99% on R/A; jw7 21:00 BP 216 / 102; Pulse 92; Resp 18 S; Pulse Ox 98% on R/A; jw7 21:30 BP 159 / 79; Pulse 70; Resp 18 S; Pulse Ox 98% on R/A; jw7 22:00 BP 146 / 71; Pulse 70; Resp 17 S; Pulse Ox 97% on R/A; jw7 22:30 BP 168 / 79; Pulse 71; Resp 16 S; Pulse Ox 97% on R/A; jw7 20:26 Body Mass Index 25.69 (65.77 kg, 160.02 cm) as6 20:26 Pain Scale: Adult as6 [place] Coma Score: 22:49 Eye Response: spontaneous(4). Motor Response: obeys commands(6). Verbal Response: sp4 oriented(5). Total: 15. Procedures: 22:49 Performed Right upper dental block and also right upper dental alveolus packing. There sp4 is bleeding alveolus at the site of tooth #2 extraction. There is moderate bleeding directly from the alveolus. Dental block was accomplished right upper gingiva with lidocaine with epinephrine. Bleeding has improved. The dental alveolus was packed with Surgicel. Bleeding has stopped.. MDM: 20:27 Patient medically screened. sp4 22:49 Differential Diagnosis altered mental status, sepsis, flu, Dental bleeding. Data sp4 reviewed: vital signs, nurses notes, old medical records. ED course: Dental bleeding was stopped. Patient is stable for discharge home. Advised to follow-up with a dentist first thing tomorrow for repeat exam. . 09/12 20:27 Order name: Dressing - Wound; Complete Time: 21:04 sp4 09/12 20:27 Order name: Gloves, Sterile; Complete Time: 20:46 sp4 09/12 20:27 Order name: Setup Suture Tray; Complete Time: 20:46 sp4 Administered Medications: 21:04 Drug: Lidocaine-Epinephrine Infiltration -2 % (1:100,000) 20 ml Infiltration once; to jw7 bedside Route: Infiltration; 22:59 Follow up: Response: No adverse reaction; Marked relief of symptoms jw7 Disposition Summary: 09/13/23 22:32 Discharge Ordered Problem: new sp4 Symptoms: have improved sp4 Condition: Stable sp4 Diagnosis - Acute dental bleed, postprocedural bleeding , dental alveolar bleeding sp4 Followup: sp4 - With: Private Physician - When: 1 - 2 days - Reason: Recheck today's complaints Discharge Instructions: - Discharge Summary Sheet sp4 - Uncontrolled Wound Bleeding sp4 Signatures: Daren Menendez RN RN as6 Madelyn Paniagua RN RN jw7 Mika Beckett MD MD sp4
--- NOTE | 2023-09-13 22:33 | ER ---
Nurse's Notes [facility] Name: Gayla aZpata Age: 58 yrs Sex: Female : 1965 Arrival Date: 09/13/2023 Time: 20:18 Bed 7 Private MD: Diagnosis: Acute dental bleed, postprocedural bleeding , dental alveolar bleeding Presentation: 09/12 20:26 Chief complaint: Patient states: pt had a tooth removed today and the site hasn't as6 stopped bleeding. Coronavirus screen: At this time, the client does not indicate any symptoms associated with coronavirus-19. Ebola Screen: No symptoms or risks identified at this time. Initial Sepsis Screen: Does the patient meet any 2 criteria? No. Patient's initial sepsis screen is negative. Does the patient have a suspected source of infection? No. Patient's initial sepsis screen is negative. Risk Assessment: Do you want to hurt yourself or someone else? Patient reports no desire to harm self or others. Onset of symptoms was September 13, 2023. 20:26 Method Of Arrival: Ambulatory as6 20:26 Acuity: ADELAIDA 3 as6 Historical: - Allergies: 20:29 No Known Allergies; as6 - PMHx: 20:29 Hypertensive disorder; Hypothyroidism; Hypercholesterolemia; as6 - PSHx: 20:29 eye; as6 - Immunization history:: Adult Immunizations up to date. - Infectious Disease History:: Denies. - Social history:: Smoking status: Patient denies any tobacco usage or history of. - Family history:: not pertinent. Screenin:40 [facility] ED Fall Risk Assessment (Adult) History of falling in the last 3 months, jw7 including since admission No falls in past 3 months (0 pts) Confusion or Disorientation No (0 pts) Intoxicated or Sedated No (0 pts) Impaired Gait No (0 pts) Mobility Assist Device Used No (0 pt) Altered Elimination No (0 pt) Score/Fall Risk Level 0 - 2 = Low Risk Oriented to surroundings, Maintained a safe environment, Educated pt \T\ family on fall prevention, incl call for assistance when getting out of bed. Abuse screen: Denies threats or abuse. Denies injuries from another. Nutritional screening: No deficits noted. Tuberculosis screening: No symptoms or risk factors identified. Assessment: 20:40 General: Appears in no apparent distress. uncomfortable, Behavior is calm, cooperative. jw7 20:40 Pain: Complains of pain in right buccal mucosa Pain does not radiate. Pain currently is jw7 5 out of 10 on a pain scale. Quality of pain is described as throbbing, Pain began suddenly, Is continuous. Neuro: Level of Consciousness is awake, alert, obeys commands, Oriented to person, place, time, situation. Cardiovascular: Heart tones S1 S2 present Capillary refill < 3 seconds Clubbing of nail beds is absent JVD is absent Patient's skin is warm and dry. Respiratory: Airway is patent Trachea midline Respiratory effort is even, unlabored, Respiratory pattern is regular, symmetrical, Breath sounds are clear bilaterally. GI: Abdomen is round non-distended, Bowel sounds present X 4 quads. Abd is soft and non tender X 4 quads. : No deficits noted. No signs and/or symptoms were reported regarding the genitourinary system. EENT: Bleeding from tooth extraction on right upper side, bleeding moderately. . Reports Continuous bleeding from tooth extraction that occurred today at 1300. . Derm: Skin is intact, is healthy with good turgor, Skin is dry, Skin is normal, Skin temperature is warm. Musculoskeletal: Circulation, motion, and sensation intact. Range of motion: intact in all extremities. 21:59 Reassessment: Patient appears in no apparent distress at this time. Patient and/or jw7 family updated on plan of care and expected duration. Pain level reassessed. Patient is alert, oriented x 3, equal unlabored respirations, skin warm/dry/pink. Pt still having slow bleeding to tooth extraction, Provider repacked area. 22:30 Reassessment: Patient appears in no apparent distress at this time. Patient and/or jw7 family updated on plan of care and expected duration. Pain level reassessed. Patient is alert, oriented x 3, equal unlabored respirations, skin warm/dry/pink. bleeding from tooth extraction has stopped. Vital Signs: 20:26 BP 224 / 104; Pulse 87; Resp 18 S; Temp 98.1(TE); Pulse Ox 97% on R/A; Weight 65.77 kg as6 (R); Height 5 ft. 3 in. (R); Pain 0/10; 20:40 BP 220 / 106; Pulse 90; Resp 19 S; Pulse Ox 99% on R/A; jw7 21:00 BP 216 / 102; Pulse 92; Resp 18 S; Pulse Ox 98% on R/A; jw7 21:30 BP 159 / 79; Pulse 70; Resp 18 S; Pulse Ox 98% on R/A; jw7 22:00 BP 146 / 71; Pulse 70; Resp 17 S; Pulse Ox 97% on R/A; jw7 22:30 BP 168 / 79; Pulse 71; Resp 16 S; Pulse Ox 97% on R/A; jw7 20:26 Body Mass Index 25.69 (65.77 kg, 160.02 cm) as6 20:26 Pain Scale: Adult as6 [place] Coma Score: 22:49 Eye Response: spontaneous(4). Motor Response: obeys commands(6). Verbal Response: sp4 oriented(5). Total: 15. ED Course: 20:20 Patient arrived in ED. ra3 20:26 Mika Beckett MD is Attending Physician. sp4 20:26 Arm band placed on. as6 20:29 Triage completed. as6 20:40 Patient has correct armband on for positive identification. Bed in low position. Call 7 light in reach. 20:45 Packing of tooth extraction to right upper bucosal area. jw7 22:45 Provided Education on: Need to follow-up with Dentist tomorrow for reevaluation. . jw7 22:58 Patient did not have IV access during this emergency room visit. jw7 Administered Medications: 21:04 Drug: Lidocaine-Epinephrine Infiltration -2 % (1:100,000) 20 ml Infiltration once; to jw7 bedside Route: Infiltration; 22:59 Follow up: Response: No adverse reaction; Marked relief of symptoms jw7 Medication: 22:58 VIS not applicable for this client. jw7 Outcome: 22:32 Discharge ordered by . sp4 22:58 Discharged to home ambulatory, jw7 22:58 Condition: stable 22:58 Discharge instructions given to patient, Instructed on discharge instructions, follow up and referral plans. Demonstrated understanding of instructions, follow-up care, 22:59 Patient left the ED. jw7 Signatures: Daren Menendez RN RN as6 Madelyn Paniagua RN RN jw7 Mika Beckett MD MD sp4 Diana Chung ra3
[2023-09-14 10:15] VITALS: BP 168/79; TEMP 98.1; O2SAT 97
== END 2023-09-13 22:59 | disposition home or self-care (01) ==
LOC: ER 20:18
DX: K91.841 Postprocedural hemorrhage of a digestive system organ or structure following other procedure (principal); Z98.818 Other dental procedure status
CPT/HCPCS: 99283